=== PATIENT | female | born 1980 | race Caucasian/White ===

== ENCOUNTER 2020-10-18 08:48 | Emergency (ER) | payer OTHER, SELFPAY ==
[2020-10-18 09:05] VITALS: BP 114/79; PULSE 82; RESP 18; TEMP 36.6; O2SAT 99
--- NOTE | 2020-10-18 09:05 | ED.WOUNDLAC ---
HPI - Wound/Laceration General Chief Complaint: Extremity Injury, Upper Stated Complaint: Laceration/Wound Time Seen by Provider: 10/18/20 09:05 Source: patient and RN notes reviewed History of Present Illness HPI narrative: Patient is a 39-year-old female who presents the urgent care with complaints of a laceration to the right pinky finger. 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 Patient is up-to-date on her tetanus. States that the injury happened approximately 30 minutes ago. Patient has not done anything to the wound prior to arrival. No other acute complaints. No acute distress noted. Patient aware of the plan of care. Some parts of this dictation were generated by voice recognition software and may contain typographical and/or grammatical inaccuracies. Related Data Home Medications Medication Instructions Recorded Confirmed No Home Medications 10/18/20 10/18/20 Allergies Allergy/AdvReac Type Severity Reaction Status Date / Time No Known Allergies Allergy Verified 10/18/20 09:06 Review of Systems Review of Systems: Narrative: CONSTITUTIONAL: Denies fever, chills, or sweats. EYES: Denies visual changes, redness, or discharge. ENT: Denies rhinorrhea, congestion, sore throat, or otalgia. CARDIOVASCULAR: Denies chest pain, palpitations, or edema. RESPIRATORY: Denies cough or dyspnea. GASTROINTESTINAL: Denies abdominal pain, nausea, vomiting, or diarrhea. GENITOURINARY: Denies dysuria or hematuria. SKIN: Reports of a laceration to the right pinky finger MUSCULOSKELETAL: Denies back pain, joint pain, or myalgia. NEUROLOGIC: Denies headache, numbness, or weakness. All other systems reviewed are negative, except as documented in HPI. PMFSH Social History Social History Smoking status: Never smoker Alcohol intake: current Comments At the time of my signature, I reviewed and agree with the nursing past medical, surgical, social, and family history. There is no relevant family history pertinent to the patient complaint. Exam Narrative: Exam Narrative: GENERAL: This is a well-nourished, well-developed patient, in no apparent distress. HEAD: normocephalic, atraumatic. EYES: PERRL. Sclera clear/white. Vision is grossly intact. EARS: External ears normal NOSE: External nose normal with no obvious nasal discharge, nares without redness, no rhinorrhea. THROAT: Mucous membranes moist NECK: Neck supple SKIN: 3.5 cm linear laceration noted to the crevice of the MCP/fifth metacarpal of the right pinky finger. Warm, intact with no suspicious lesions or rash, good texture and turgor. NEURO: awake, alert, and oriented to person, place and time. There were no obvious focal neurologic abnormalities. EXTREMITIES: No clubbing, cyanosis, or edema. Range of motion to right upper extremity within normal limits. Positive strong right radial pulse with capillary refill less than 2 seconds. Course Vital Signs Vital signs: Vital Signs Temperature 97.9 F 10/18/20 09:05 Pulse Rate 82 10/18/20 09:05 Respiratory Rate 18 10/18/20 09:05 Blood Pressure 114/79 10/18/20 09:05 Pulse Oximetry 99 10/18/20 09:05 Temperature 97.9 F 10/18/20 09:17 Pulse Rate 82 10/18/20 09:17 Respiratory Rate 18 10/18/20 09:17 Blood Pressure 114/79 10/18/20 09:17 Pulse Oximetry 99 10/18/20 09:17 Reviewed Procedures Laceration Laceration 1: Site: hand (Pinky finger) Side (If applicable): right Size (cm): 3.5 Description: linear Local Anesthetic: lidocaine 1% Pre-repair: irrigated (Technique care normal saline) ====== Skin Level ====== Skin layer closed with: other (Ethilon) Size (cm): 5-0 Number of sutures: 4 ====== Subcutaneous Layer ====== ====== Muscle Layer ====== ====== Tendon Layer ====== Dressin cm linear laceration to the MCP crevice of the right fifth digit. Irrigated
[2020-10-18 09:17] VITALS: BP 114/79; PULSE 82; RESP 18; TEMP 36.6; O2SAT 99
== END 2020-10-18 09:57 | disposition home or self-care (01) ==
PROVIDERS: Emergency Provider Nurse Practitioner Family; PCP Internal Medicine
DX: S61.216A Laceration without foreign body of right little finger without damage to nail, initial encounter (principal); W45.8XXA Other foreign body or object entering through skin, initial encounter; Y99.0 Civilian activity done for income or pay
CPT/HCPCS: 12002; 99202; G0463

== ENCOUNTER 2024-10-10 16:34 | Emergency (ER) | payer OTHER, SELFPAY ==
--- NOTE | ~2024-10-10 | XR_ITS ---
HISTORY: dropped a steel bar on finger COMPARISON: None TECHNIQUE: 2 views of the right third digit were performed. FINDINGS: Comminuted fracture of the tuft of the right third digit. Suspect nailbed injury. Joint spaces are preserved and alignment is maintained. Soft tissues are without radiopaque foreign body or significant calcification. Age-appropriate mineralization. IMPRESSION: Comminuted fracture of the tuft of the right third digit, as detailed above. Reviewed, dictated and finalized at location A. IMPRESSION: Comminuted fracture of the tuft of the right third digit, as jordin led above.
--- OUTSIDE RECORDS SUMMARY | 2024-10-10 16:36 | XMS_ITS | Clinical Summary ---
Author Organization [facility] Address [address], [address] [address] Phone Care Team Providers Care Deputy Sheriff Lieutenant Name Role Phone Romeo Galicia MD Primary Care Provider [phone] Allergies No known active allergies Medications traMADol (ULTRAM) 50 MG Tablet Take 1 Tab by mouth every 6 hours as needed for Pain. 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 Respiratory Rate 16 06/10/2016 9:17 AM WOOD ST[employer]ER Oxygen Saturation 98% 06/10/2016 4:47 PM WO[employer] ST[employer]ER Inhaled Oxygen Concentration - - Weight 108.9 kg (240 lb) 06/10/2016 9:17 AM WOOD STAINER Height 172.7 cm (5' 8 ) 06/10/2016 9:17 AM WOOD ST[employer]ER Body Mass Index 36.49 06/10/2016 9:17 AM WOOD STAINER Plan of Treatment Health Maintenance Due Date Last Done Comments Hepatitis C Virus (HCV) Screening 1981 TdaP Immunization 1981 Hepatitis B Immunization (1 of 3 - 19+ 3-dose series) 2000 Pap Smear 2002 Cervical Cancer Screening (CCS) 12/01/2011 HPV/Cotest 12/01/2011 Discussion re Starting/Frequ ency of Mammograms 2021 Influenza Immunization (#1) 2024 SARS-COV-2 Immunization ( - season) 2024 Respiratory Syncytial Virus (RSV) Immunization (Adult) (1 - 1-dose 75+ series) 2056 Meningococcal Immunization (ACWY) Aged Out No longer eligible based on patient's age to complete this topic Pneumococcal Immunization Combined Aged Out No longer eligible based on patient's age to complete this topic Rotavirus Immunization Aged Out No lo nger eligible based on patient's age to complete this topic Insurance [employer] Care Teams Deputy Sheriff Lieutenant Relationship Specialty Start Date End Date Romeo Galicia MD [address] [facility] [address] [place] [address] [place] [address] PCP - General Internal Medicine 06/10/16
--- OUTSIDE RECORDS SUMMARY | 2024-10-10 16:36 | XMS_ITS | Data Portability ---
Author Organization [facility] Radha Pina Address [address] [place] [address] Care Team Providers Care Credit Representative Name Role Phone MELANIE PRITCHETT Primary Care Provider Unavailabl e Assessment No assessment recorded. Plan of Treatment Reminders Order Date Submit Date Provider Last Modified By Organization Details Last Modified Time Details Appointments ANY 15 2024 02:45P M MELANIE PRITCHETT, CHILD CARE ASSOCIATE TEACHER-BC Not available Not available Not available Lab urinalysi s, dipstick 2014 015 [email or web address] In-Office Order, Internal Use Only DO Not Attach Compendium DO Not Attach Compendium, Do Not Delete/merge, [id number] 02/21/2015 17:42:18 bacterial vaginosis + vaginitis panel, vaginal 2014 015 [facility], [address] [place] [address], [address], [place], [address], 03/02/2015 17:38:06 bacterial vaginosis + vaginitis panel, vaginal 2014 015 [facility], [address] [facility], [address], [place], [address], 09/16/2014 06:36:58 HBsAg (hepatiti s B surface Ag), EIA, serum 2014 015 [facility], [address] [facility] [address] [facility], [address], [place], [address], 09/16/2014 08:59:50 hepatitis C Ab, signal-to -cutoff, serum or plasma 2014 015 [facility], [address] [place] [address], [address], [place], [address], 09/16/2014 08:59:50 HIV (1+O+2) Ab, serum 2014 015 [facility], [address] [place] [address], [address], [place], [address], 09/16/2014 08:59:48 RPR (rapid plasma reagin), serum 2014 015 [facility], [address] [place] [address], [address], [place], [address], 09/16/2014 08:59:49 hsv (1+2) igg, serum 2014 015 [facility], [address] [place] [address], [address], [place], [address], 09/16/2014 08:59:48 Referral None recorded. Procedures None recorded. Surgeries None recorded. Imaging None recorded. Medication Orders Flagyl 500 mg tablet 2014 015 [id number], [address] [place], [id number], 09/28/2024 10:02:27 Zoloft 50 mg tablet 2014 015 [email or web address] [id number], [address] [place], [place], [id number], 09/28/2024 10:26:22 Patient TargetsNo targets recorded. Patient Instructions Encounter Date Encounter Id Patient Instructions Last Modified By Organization Details Last Modified Time 02/21/2015 [id number] learning about mood disorders [email or web address] Not available 02/21/2015 18:02:25 Reason for Referral Orthopedic Surgeon Referral for Numbness of hand Referring Physician: Melanie Pritchett [facility], Encounter Date: 09/28/2024 Psychiatrist Referral for Ad ult attention deficit hyperactivity disorder Referring Physician: Melanie Pritchett [facility], Encounter Date: 09/28/2024 Results Created Date Observation Date Name Description Value Unit Range Abnormal Flag Note LastModifiedBy Organization Detail LastModifiedTime 02/22/20 15 02/21/2015 urina lysis , dipst ick Leukocytes Negati ve Not Available In-Office Order Internal Use Only DO Not Attach Compendium DO Not Attach Compendium, Do Not Delete/merge, [id number] 02/21/2015 11:41:33 02/22/20 15 02/21/2015 urina lysis , dipst ick Nitrite negati ve Not Available In-Office Order Internal Use Only DO Not Attach Compendium DO Not Attach Compendium, Do Not Delete/merge, [id number] 02/21/2015 11:41:33 02/22/20 15 02/21/2015 urina lysis , dipst ick Urobilinogen .2 Not Available In-Of fice Order Internal Use Only DO Not Attach Compendium DO Not Attach Compendium, Do Not Delete/merge, [id number] 02/21/2015 11:41:33 02/22/2002/21/2015 urina lysis , dipst ick Protein Negati ve Not Available In-Office Order Internal Use Only DO Not Attach Compendium DO Not Attach Compendium, Do Not Delete/merge, [id number] 02/21/2015 11:41:33 02/22/20 15 02/21/2015 urina lysis , dipst ick pH 5.0 Not Available In-Office Order Internal Use Only DO Not Attach Compendium DO Not Attach Compendium, Do Not Delete/merge, [id number] 02/21/2015 11:41:33 02/22/2002/21/2015 urina lysis , dipst ick Blood Non-He molyze d: Trace Not Available In-Office Order Internal Use Only DO Not Attach Compendium DO Not Attach Compendium, Do Not Delete/merge, [id number] 02/21/2015 11:41:33 02/22/20 15 02/21/2015 urina lysis , dipst ick Specific [place] 1.020 Not Available In-Off ice Order Internal Use Only DO Not Attach Compendium DO Not Attach Compendium, Do Not Delete/merge, [id number] 02/21/2015 11:41:33 02/22/20 15 02/21/2015 urina lysis , dipst ick Ketone Negati ve Not Available In-Office Order Internal Use Only DO Not Attach Compendium DO Not Attach Compendium, Do Not Delete/merge, 02/21/2015 11:41:33 02/22/20 15 02/21/2015 urina lysis , dipst ick Bilirubin Negati ve Not Available In-Office Order Internal Use Only DO Not Attach Compendium DO Not Attach Compendium, Do Not Delete/merge, 02/21/2015 11:41:33 02/22/20 15 02/21/2015 urina lysis , dipst ick Glucose Negati ve Not Available In-Office Order Internal Use Only DO Not Attach Compendium DO Not Attach Compendium, Do Not Delete/merge, 02/21/2015 11:41:33 02/22/20 15 02/21/2015 urina lysis , dipst ick Appearance Clear Not Available In-Offi ce Order Internal Use Only DO Not Attach Compendium DO Not Attach Compendium, Do Not Delete/merge, 02/21/2015 11:41:33 02/22/20 15 02/21/2015 urina lysis , dipst ick Color Pale Yellow Not Available In-Office Order Internal Use Only DO Not Attach Compendium DO Not Attach Compendium, Do Not Delete/merge, 02/21/2015 11:41:33 09/14/19 15 09/15/2014 bacte rial vagin osis + vagin itis panel , vagin al atopobium vaginae HIGH - 2 score abnormal Not Available [facility] ([facility]) [address], [place], [address], 09/16/2014 06:36:58 09/14/19 15 09/15/2014 bacte rial vagin osis + vagin itis panel , vagin al bvab 2 LOW - 0 score Not Available [facility] ([facility]) [address] [facility], [place], [address], 09/16/2014 06:36:58 09/14/19 15 09/15/2014 bacte rial vagin osis + vagin itis panel , vagin al megasphaera 1 LOW - 0 score CALCU LATE TOTAL SCORE BY DEBRA Zayas THE 3 INDIV IDUAL BACTE RIAL VAGIN OSIS (BV) MARKE R SCORE S TOGET HER. TOTAL SCORE IS INTER PRETE D FOLLO WS: . TOTAL SCORE 0-1: INDIC ATES THE ABSEN CE OF BV. TOTAL SCORE 2: INDET ERMIN ATE FOR BV. ADDIT IONAL CLINI ABDIRAHMAN DATA SHOUL D BE EVALU ATED TO ESTAB JANAK A DIAGN OSIS. TOTAL SCORE 3-6: INDIC ATES THE PRESE NCE OF BV. . THIS TEST WAS DEVEL OPED AND ITS PERFO RMANC E STEVEN CTERI STICS DETER MINED BY [facility]. IT HAS NOT BEEN CLEAR ED OR APPRO LEANN BY THE FOOD AND DRUG ADMIN ISTRA TION. THE FDA HAS DETER MINED THAT SUCH CLEAR ANCE OR APPRO SADAF IS NOT NECES [place]. Not Available [facility] ([facility]) [address] [facility], [place], [address], 09/16/2014 06:36:58 09/14/19 15 09/15/2014 bacte rial vagin osis + vagin itis panel , vagin al trich vag by ULYSSES NEGATI VE negati ve Not Available [facility] ([facility]) [address] [place], [address], 09/16/2014 06:36:58 09/14/19 15 09/15/2014 bacte rial vagin osis + vagin itis panel , vagin al chlamydia trachomatis, ULYSSES NEGATI VE negati ve Not Available [facility] ([facility]) [address] [place], [address], 09/16/2014 06:36:58 09/14/19 15 09/15/2014 bacte rial vagin osis + vagin itis panel , vagin al neisseria gonorrhoeae, ULYSSES NEGATI VE negati ve Not Available [facility] ([facility]) [address] [place], [address], 09/16/2014 06:36:58 09/14/19 15 09/16/2014 bacte rial vagin osis + vagin itis panel , vagin al bailey albicans, ULYSSES NEGATI VE negati ve Not Available [facility] ([facility]) [address] [facility], [place], [address], 09/16/2014 06:36:58 09/14/19 15 09/16/2014 bacte rial vagin osis + vagin itis panel , vagin al bailey glabrata, ULYSSES NEGATI VE negati ve THIS TEST WAS DEVEL OPED AND ITS PERFO RMANC E STEVEN CTERI STICS DETER MINED BY [facility]. IT HAS NOT BEEN CLEAR ED OR APPRO LEANN BY THE FOOD AND DRUG ADMIN ISTRA TION. THE FDA HAS DETER MINED THAT SUCH CLEAR ANCE OR APPRO SADAF IS NOT NECES [place]. Not Available [facility] ([facility]) [address] [facility], [place], [address], 09/16/2014 06:36:58 09/15/1909/16/2014 HIV (1+O+ 2) Ab, serum HIV 1/O/2 abs-index value <1.00 <1.00 INDEX VALUE : SPECI MEN REACT IVITY RELAT OLEG TO THE NEGAT OLEG CUTOF F. Not Available [facility] ([facility]) [address] [facility], [place], [address], 09/16/2014 08:59:48 09/15/1909/16/2014 HIV (1+O+ 2) Ab, serum HIV 1/O/2 abs, qual NON REACTI VE non reacti ve Not Available [facility] ([facility]) [address] [facility], [place], [address], 09/16/2014 08:59:48 09/15/19 15 09/15/2014 hsv (1+2) igg, serum hsv 1 IgG, type spec 37.80 index 0.00-0 .90 high NEGAT OLEG <0.91 EQUIV OCAL 0.91 - 1.09 POSIT OLEG >1.09 NOTE: NEGAT OLEG INDIC ATES NO ANTIB ODIES DETEC CHICO TO HSV-1 . EQUIV OCAL MAY SUGGE ST EARLY INFEC TION. IF CLINI BONNIE APPRO PRIAT E, RETES T AT LATER DATE. POSIT OLEG INDIC ATES ANTIB ODIES DETEC CHICO TO HSV-1 . Not Available [facility] ([facility]) [address] [facility], [place], [address], 09/16/2014 08:59:48 09/15/19 15 09/15/2014 hsv (1+2) igg, serum hsv 2 IgG, type spec <0.91 index 0.00-0 .90 NEGAT OLEG <0.91 EQUIV OCAL 0.91 - 1.09 POSIT OLEG >1.09 NOTE: NEGAT OLEG INDIC ATES NO ANTIB ODIES DETEC CHICO TO HSV-2 . EQUIV OCAL MAY SUGGE ST EARLY INFEC TION. IF CLINI BONNIE APPRO PRIAT E, RETES T AT LATER DATE. POSIT OLEG INDIC ATES ANTIB ODIES DETEC CHICO TO HSV-2 . Not Available [facility] ([facility]) [address] [facility], [place], [address], 09/16/2014 08:59:48 09/15/19 15 09/16/2014 RPR (rapi d plasm a reagi n), serum RPR NON REACTI VE non reacti ve Not Available [facility] ([facility]) [address] [place], [address], 09/16/2014 08:59:49 09/15/19 15 09/14/2014 hepat itis C Ab, signa l-to- cutof f, serum or plasm a comment: COMMEN T NON REACT OLEG HCV ANTIB YANET SCREE N IS CONSI STENT WITH NO HCV INFEC TION, UNLES S RECEN T INFEC TION IS SUSPE CTED OR OTHER EVIDE NCE EXIST S TO INDIC ATE HCV INFEC TION. Not Available [facility] ([facility]) [address] [facility], [place], [address], 09/16/2014 08:59:50 09/15/19 15 09/16/2014 hepat itis C Ab, signa l-to- cutof f, serum or plasm a HCV Ab <0.1 S/co_ ratio 0.0-0. 9 Not Available [facility] ([facility]) [address] [facility], [place], [address], 09/16/2014 08:59:50 09/15/19 15 09/16/2014 HBsAg (hepa titis B surfa ce Ag), EIA, serum HBsAg screen NEGATI VE negati ve Not Available [facility] ([facility]) [address] [facility], [place], [address], 09/16/2014 08:59:50 02/22/20 15 02/21/2015 bacte rial vagin osis + vagin itis panel , vagin al vaginitis positi ve tx'd at appt. Not Available [facility] ([facility]) [address] [facility], [place], [address], 03/02/2015 16:42:14 09/29/19 25 09/28/2024 drug scree n, urine Methamphetam ine Negati ve Not Available In-Office Order Internal Use Only DO Not Attach Compendium DO Not Attach Compendium, Do Not Delete/merge, [id number] 09/28/2024 10:31:36 09/29/19 25 09/28/2024 drug scree n, urine THC Positi ve Not Available In-Office Order Internal Use Only DO Not Attach Compendium DO Not Attach Compendium, Do Not Delete/merge, [id number] 09/28/2024 10:31:36 09/29/19 25 09/28/2024 drug scree n, urine Cocaine (Abraham) Negati ve Not Available In-Office Order Internal Use Only DO Not Attach Compendium DO Not Attach Compendium, Do Not Delete/merge, [id number] 09/28/2024 10:31:36 09/29/1909/28/2024 drug scree n, urine Benzodiazepi ne (Bzo) Negati ve Not Available In-Office Order Internal Use Only DO Not Attach Compendium DO Not Attach Compendium, Do Not Delete/merge, 09/28/2024 10:31:36 09/29/1909/28/2024 drug scree n, urine Methadone (Mtd) Negati ve Not Available In-Office Order Internal Use Only DO Not Attach Compendium DO Not Attach Compendium, Do Not Delete/merge, 09/28/2024 10:31:36 09/29/1909/28/2024 drug scree n, urine Buprenorphin e (Bup) Negati ve Not Available In-Office Order Internal Use Only DO Not Attach Compendium DO Not Attach Compendium, Do Not Delete/merge, 09/28/2024 10:31:36 09/29/1909/28/2024 drug scree n, urine Oxycodone (Oxy) Negati ve Not Available In-Office Order Internal Use Only DO Not Attach Compendium DO Not Attach Compendium, Do Not Delete/merge, 09/28/2024 10:31:36 09/29/1909/28/2024 drug scree n, urine Barbiturates (Bar) Negati ve Not Available In-Office Order Internal Use Only DO Not Attach Compendium DO Not Attach Compendium, Do Not Delete/merge, 09/28/2024 10:31:36 09/29/1909/28/2024 drug scree n, urine MDMA (Ecstacy) Negati ve Not Available In-Office Order Internal Use Only DO Not Attach Compendium DO Not Attach Compendium, Do Not Delete/merge, 09/28/2024 10:31:36 09/29/1909/28/2024 drug scree n, urine Amphetamines (Amp) Negati ve Not Available In-Office Order Internal Use Only DO Not Attach Compendium DO Not Attach Compendium, Do Not Delete/merge, 09/28/2024 10:31:36 09/29/1909/28/2024 drug scree n, urine Opiates (opi) Negati ve Not Available In-Office Order Internal Use Only DO Not Attach Compendium DO Not Attach Compendium, Do Not Delete/merge, [id number] 09/28/2024 10:31:36 09/29/1909/28/2024 drug scree n, urine Phencyclidin e (Pcp) Negati ve Not Available In-Office Order Internal Use Only DO Not Attach Compendium DO Not Attach Compendium, Do Not Delete/merge, [id number] 09/28/2024 10:31:36 09/29/1909/28/2024 drug scree n, urine Tricyclic Antidepressa nts Negati ve Not Available In-Office Order Internal Use Only DO Not Attach Compendium DO Not Attach Compendium, Do Not Delete/merge, [id number] 09/28/2024 10:31:36 09/29/1909/28/2024 drug scree n, urine Fentanyl Negati ve Not Available In-Office Order Internal Use Only DO Not Attach Compendium DO Not Attach Compendium, Do Not Delete/merge, [id number] 09/28/2024 10:31:36 Result Notes None recorded. Problems Name Problem SNOMED Code Status Onset Date Resolution Date Notes Provider Name and Address Organization Details Recorded Time Sexually transmitted infectious disease 8640885 Active DORITA Mooney, [facility] 5 09:50:18 Vaginal discharge 885825648 Active Bonifacio connors, [facility] 5 17:42:17 Depressive disorder 18474421 Active Bonifacio connors, [facility] 5 17:42:17 Problem Notes None recorded. Procedures Surgical History Date Name Laterality Status Provider Name and Address Organization Details Recorded Time 3 Date of Last Pap Smear completed Silvina Rodriguez MA [facility] 09/13/2014 09:44:03 procedure on shoulder completed Kerrie Sofia MA [facility] 09/28/2024 10:13:43 Tubal Ligation completed Silvina Rodriguez MA [facility] 09/13/2014 09:44:02 Imaging Results None recorded. Procedure Notes None recorded. Medical Equipment None Reported. Allergies No known drug allergies Medications Name Sig Start Date Stop Date Status Note LastModified by Organization Details LastModified Time trazodone 50 mg tablet TAKE 1 TABLET BY MOUTH NIGHTLY NEEDED FOR SLEEP active PRN Not Available Not Available No t Available dextroamph etamine-am phetamine 10 mg tablet TAKE 1 TABLET BY MOUTH EVERY DAY active Not Available Not Available No t Available Zoloft 50 mg tablet Take 1 tablet every day by oral route. 09/28 completed not taking Not Available Not Available Not Available dextroamph etamine-am phetamine ER 20 mg 24hr capsule,ex tend release TAKE 1 CAPSULE BY MOUTH EVERY DAY active Not Available Not Available No t Available Flagyl 500 mg tablet Take 1 tablet every 12 hours by oral route for 7 days. 09/28 completed Not Available Not Available Not Available methylphen idate ER 36 mg tablet,ext ended release 24 hr TAKE 1 TABLET BY MOUTH EVERY DAY IN THE MORNING 09/28 completed not taking Not Available Not Available Not Available atomoxetin e 25 mg capsule TAKE 1 CAPSULE BY MOUTH EVERY DAY active not taking Not Available Not Available Not Available bupropion HCl 150 mg tablet,12 hr sustained- release(sm oking deterrent) TAKE 1 TABLET BY MOUTH TWICE A DAY 09/28 completed not taking Not Available Not Available Not Available Vitals Date Recorded Body height Body mass index (BMI) Body weight Systolic blood pressure Diastolic blood pressure Provider Name and Address Organization Details Last Updated DateTime 02/21/2015 172.72 cm 33.8 kg/m2 081843.9 18824 g 120 mm[Hg] 80 mm[Hg] Silvina Rodriguez MA [place] [facility] 5 11:41:33 Date Recorded Body height Body mass index (BMI) Body weight Oxygen saturation Oxygen saturation in Arterial blood by Pulse oximetry Heart rate Respiratory rate Body temperature Systolic blood pressure Diastolic blood pressure Provider Name and Address Organization Details Last Updated DateTime 5 172.72 cm 30.6 kg/m2 64840.7 8 g 97 % 97 % 74 /min 16 /min 97.5 [degF] 120 mm[Hg] 85 mm[Hg] Kerrie Sofia [place] [facility] 5 10:16:59 Date Recorded Body weight Body height Body mass index (BMI) Systolic blood pressure Diastolic blood pressure Provider Name and Address Organization Details Last Updated DateTime 09/13/2014 65762.97 5374 g 172.72 cm 33 kg/m2 114 mm[Hg] 80 mm[Hg] Silvina Rodriguez MA [facility] 5 09:44:03 Social History Question Answer Notes LastModified by Organizat ion Details LastModified Time Tobacco Smoking Status Current Every Day Smoker Silvina Rodriguez MA null, [facility] 09/13/2014 09:44:03 What Is Your Level Of Alcohol Consumption? Occasional Information not available 09/13/2014 Are You Blind Or Do You Have Difficulty Seeing? Yes Glasses Information not available 09/28/2024 Is Blood Transfusion Acceptable In An Emergency? Yes Information not available 09/13/2014 What Is Your Level Of Caffeine Consumption? Heavy Information not available 09/28/2024 In The 14 Days Before Symptom Onset, Have You Had Close Contact With A Laboratory-confi rmed COVID-19 While That Case Was Ill? No Information not available 09/28/2024 Have You Been To An Area Known To Be High Risk For COVID-19? No Information not available 09/28/2024 Are You Currently Employed? Yes Information not available 09/28/2024 Are You Deaf Or Do You Have Serious Difficulty Hearing? No Information not available 09/28/2024 What Type Of Diet Are You Following? REGULAR Portion Control Information not available 09/28/2024 What Is Your Occupation? [employer] Information not available 09/28/2024 Are There Any Guns Present In Your Home? No Information not available 09/28/2024 Live Alone Or With Others? With Others Information not available 09/13/2014 What Was The Date Of Your Most Recent Tobacco Screening? 09/28/2024 Information not available 09/28/2024 How Many Children Do You Have? 2 Information not available 09/13/2014 What Is Your Relationship Status? Single Information not available 09/13/2014 Do You Use Your Seat Belt Or Car Seat Routinely? Yes Information not available 09/28/2024 Do You Have Smoke And Carbon Monoxide Detectors In Your Home? Yes Information not available 09/28/2024 At What Age Did You Start Smoking Tobacco? 13 Information not available 09/28/2024 Are You Passively Exposed To Smoke? Yes Information not available 09/28/2024 How Much Tobacco Do You Smoke? 1 PPD Information not available 09/28/2024 Do You Feel Stressed (tense, Restless, Nervous, Or Anxious, Or Unable To Sleep At Night)? [id number] Information not available 09/28/2024 Do You Use Any Illicit Or Recreational Drugs? No Information not available 09/28/2024 Do You Use Sunscreen Routinely? Yes Information not available 09/28/2024 Has Tobacco Cessation Counseling Been Provided? Yes Information not available 09/28/2024 On What Date Was Tobacco Cessation Counseling Provided? 09/28/2024 Information not available 09/28/2024 How Many Years Have You Smoked Tobacco? 20 Information not available 09/13/2014 Do You Or Have You Ever Used Any Other Forms Of Tobacco Or Nicotine? No Information not available 09/28/2024 Sex: Female Functional Status Question Answer Note LastModified by Organizat ion Details LastModified Time Are you able to care for yourself? Yes Information not available 09/28/2024 What is your exercise level? Moderate walking Information not available 09/28/2024 Mental Status None recorded. Family History Relationship Description Onset Age of this Age Resolved Age Notes LastModified by Organization Details LastModified Time Paternal Grandmother Malignant neoplasm of urinary bladder Not available 2014 11:41:33 Brother Diverticulit is Not available 2024 10:06:54 Father Narcolepsy Not availa ble 09/28/2024 10:07:03 Paternal Grandfather Malignant tumor of lung Not available 2024 10:07:18 Medical History Condition Response Coronary Artery Disease N Other N Atrial Fibrillation N High Blood Pressure N Depression N COPD N Blood Clots N Anxiety Disorder Y Muscle, Joint, or Bone Problems N Arthritis N Acid Reflux (GERD) N Cancer N Stroke N ADHD Y High Cholesterol N Liver Disease N Schizophrenia N Headaches N Thyroid Problems N Kidney or Bladder Problems N GI Problems N Have you had a mammogram in the last yea r? N Eating Disorder N Skin Problems N Anemia N Heart Attack ([place]) N Diabetes N Seizures/Epilepsy N Have you had a colonoscopy in the last 1 0 years? N Asthma N Allergies N Have you had a PSA blood test in the las t year? N Substance Abuse N Hepatitis N Heart Failure N Osteoporosis N Gynecological History Statement/Question Response Abnormal Pap Y Date of LMP STIs/STDs Y HPV Vaccine Y Age at Menarche 12 Current Control Method Hysterectom y Age at First Child 30 Sexually Active? Y Date of Last Pap Smear 07/10/2012 Sexual Problems? N LMP Approximate Desired Control Method None Obstetrics History GPAL:G 1 P 0 0 0 2 Type Value Living 2 Total 1 Immunizations Vaccine Type Date Status Note Provider Alfa cornejo and Address Organization Details Recorded Time Tdap 01/17/2022 completed Kerrie Sofia MA [place], [place] - [facility] 09/28/2024 10:25:29 Past Encounters Encounter ID Performer Location Encounter Start Date Encounter Closed Date Diagnosis/Indication Diagnosis SNOMED-CT Code Diagnosis ICD10 Code Diagnosis Note [id number] Brando Morales ([facility]) [place] [address] 09/13/2014 09:28:56 09/14/2014 09:16:33 Sexually transmitted infectious disease 3509535 Gynecologi c examination 68380137 pap deferred, last done in 2012 and negative. Venereal d isease screening 115453366 [id number] Brando Morales ([facility]) [place] [address] 02/21/2015 11:22:35 02/21/2015 14:01:25 Vaginal discharge 905302204 Depressive disorder 82628129 Health Concerns Section Related Observation LastModified by Organization Detai ls LastModified Time None Recorded Concern Status LastModified by Organization Details LastModified Time None Recorded Advance Directives Directive None Recorded Payers Encounter Date Sequence Insurance Name Policy Number Policy Barrett Covered Member ID Barrett Member ID Guarantor Name 09/13/2014 1 [facility] [id number] 1 Estefania Gramajo [id number] Estefania Gramajo 02/21/[address] [facility] [id number] Estefania Gramajo [id number] Estefania Gramajo Notes Date Note Type Note Provider Name and Address Organization Details Recorded Time 02/21/2015 text/html patient complain s of moodiness the week before and during menses. Complains of crying and quick to anger. Patient previously took ssri and was control pills for these mood swings. Patient complained that symptoms returned after discontinuing control pills. Has not been on ssri alone in the past 15 years. Vaginal discharge is white with odor and with irritation. No concern about stds and last check was notable for possible bv but patient had no symptoms then. Patient complains of spots on labia that appeared about 2-3 week, not bothersome. Bonifacio Carmona [facility], [place] - [facility], [facility] 02/21/2015 19:50:56 OBGyn Episode No OBEpisode recorded.
--- OUTSIDE RECORDS SUMMARY | 2024-10-10 16:37 | XMS_ITS | Referral Summary ---
Author Organization [facility] A Address [address] [place] [address] Care Team Providers Care On Site Coordinator Name Role Phone Roverto Leary MD Primary Care Provider [phone] Encounters Date Type Department Care Team Description 09/06/2024 Orders Only [facility] Primary Care at [address] [address] Roverto Leary MD 08/16/2024 4:00 PM RESEARCH MANAGER Office Visit [address] [place] [address] Margaux Oseguera NP Perimenopausal vasomotor symptoms (Primary Dx); Encounter for screening mammogram for breast cancer 08/05/2024 9:00 AM RESEARCH MANAGER Office Visit [facility] Primary Care at [address] [address] Roverto Leary MD Attention deficit hyperactivity disorder (ADHD), predominantly inattentive type (Primary Dx); Class 1 obesity due to excess calories without serious comorbidity with body mass index (BMI) of 32.0 to 32.9 in adult 07/30/2024 Telephone [facility] Primary Care at [address] [address] Roverto Leary MD Test Results 07/30/2024 7:15 AM RESEARCH MANAGER Lab [facility] [address] [place] [address] Need for hepatitis B screening test; Primary insomnia; Attention deficit hyperactivity disorder (ADHD), predominantly inattentive type; Class 1 obesity due to excess calories without serious comorbidity with body mass index (BMI) of 32.0 to 32.9 in adult; Lipid screening 07/30/2024 7:10 AM RESEARCH MANAGER Lab [facility] [address] [place] [address] Perimenopausal symptom 07/27/2024 Telephone [facility] [address] [facility] [address] [place] [address] Margaux Oseguera NP Labs/Appointment 07/27/2024 Telephone [facility] 4 [facility] [address] [place] [phone] Margaux Oseguera NP menopause symptoms 07/20/2024 Telephone [facility] [address] [address] Roverto Leary MD 07/15/2024 Telephone [facility] [place] 2 [facility] [address] [place] [address] Roverto Leary MD from Last 3 Months Allergies Active Allergy Reactions Criticality Noted Date Comments Tramadol Nausea only Low 02/28/2017 Medications mupirocin (BACTROBAN) 2 % ointment Apply topically 3 (three) times a day 22 g 3 Active Additional Information Patient not taking.Reported on 08/16/2024 cyclobenzaprine (FLEXERIL) 5 mg tablet Take 1 tablet (5 mg total) by mouth 3 (three) times a day as needed for muscle spasms 30 tablet 4 Active traZODone (DESYREL) 50 mg tablet TAKE 1 TABLET BY MOUTH NIGHTLY NEEDED FOR SLEEP 90 tablet 1 4 Active atomoxetine (STRATTERA) 25 mg capsuleIndication s:Attention-Defic it Hyperactivity Disorder Take 1 capsule (25 mg total) by mouth daily 30 capsule 11 5 026 Active estradioL (VIVELLE-DOT) 0.025 mg/24 hrIndications:Vas omotor Symptoms associated with Menopause Place 1 patch on the skin 2 (two) times a week 8 patch 2 5 Active dextroamphetamine -amphetamine XR (ADDERALL XR) 20 mg 24 hr capsule Take 1 capsule (20 mg total) by mouth every morning 30 capsule 5 Active dextroamphetamine -amphetamine (ADDERALL) 10 mg tabletIndications :Attention-Defici t Hyperactivity Disorder Take 1 tablet (10 mg total) by mouth daily 30 tablet 5 Active Active Problems Problem Noted Date Diagnosed Date Perimenopausal vasomotor symptoms 08/18/2024 Assessment & Plan (08/18/2024 10:27 PM RESEARCH MANAGER): Discussed hormonal and non-hormonal treatment options for vasomotor symptoms. Risks and benefits of hormone replacement (HRT) for vasomotor symptoms related to menopause discussed in detail during visit. Patient aware risks associated with HRT include increased risk of blood clots, heart attack, stroke, and increased risk of breast cancer. Patient verbalizes understanding of risk and benefits and wishes to proceed with HRT. - Start on 0.025 mg transdermal estradiol patch. Prescription sent to pharmacy. Patient aware may take up to 8 weeks for full therapeutic effect. - Overdue for well woman exam. Encouraged to schedule appointment. Annual physical exam 04/19/2024 Assessment & Plan (04/19/2024 3:03 PM CDT): Discussed lifestyle modifications, diet and exercise. Routine blood work ordered/reviewed today. Yearly vision and dental examinations. Depressive disorder 12/18/2021 Assessment & Plan (12/17/2022 4:12 PM CDT): Pt did not start wellbutrin yet Will start now states otherwise not at goal Sexually transmitted disease 12/18/2021 Vaginal discharge 12/18/2021 Class 1 obesity due to exces s calories without serious comorbidity with body mass index (BMI) of 32.0 to 32.9 in adult 12/18/2021 Assessment & Plan (08/05/2024 9:12 AM RESEARCH MANAGER): Wt Readings from Last 3 Encounters: 08/05/24 92.1 kg (203 lb) 04/19/24 93.2 kg (205 lb 8 oz) 12/22/23 93.8 kg (206 lb 12.8 oz) BMI Readings from Last 3 Encounters: 08/05/24 31.79 kg/m 04/19/24 32.18 kg/m 12/22/23 32.38 kg/m Not at goal of bmi <30 Continue diet and exercise BMI Follow-up includes: nutrition counseling and exercise counseling. Assessment & Plan (04/19/2024 3:02 PM CDT): Wt Readings from Last 3 Encounters: 04/19/24 93.2 kg (205 lb 8 oz) 12/22/23 93.8 kg (206 lb 12.8 oz) 08/18/23 95.7 kg (210 lb 14.4 oz) BMI Readings from Last 3 Encounters: 04/19/24 32.18 kg/m 12/22/23 32.38 kg/m 08/18/23 33.02 kg/m Not at goal of bmi <30 Continue diet and exercise BMI Follow-up includes: nutrition counseling and exercise counseling. Assessment & Plan (12/22/2023 4:26 PM CDT): Wt Readings from Last 3 Encounters: 12/22/23 93.8 kg (206 lb 12.8 oz) 08/18/23 95.7 kg (210 lb 14.4 oz) 04/15/23 96.1 kg (211 lb 12.8 oz) BMI Readings from Last 3 Encounters: 12/22/23 32.38 kg/m 08/18/23 33.02 kg/m 04/15/23 33.17 kg/m Not at goal of bmi <30 Continue diet and exercise BMI Follow-up includes: nutrition counseling and exercise counseling. Assessment & Plan (08/18/2023 4:40 PM RESEARCH MANAGER): Wt Readings from Last 3 Encounters: 08/18/23 95.7 kg (210 lb 14.4 oz) 04/15/23 96.1 kg (211 lb 12.8 oz) 02/07/23 93 kg (205 lb) BMI Readings from Last 3 Encounters: 08/18/23 33.02 kg/m 04/15/23 33.17 kg/m 02/07/23 32.11 kg/m Not at goal of bmi <30 Continue diet and exercise BMI Follow-up includes: nutrition counseling and exercise counseling. Assessment & Plan (04/15/2023 4:45 PM CDT): Wt Readings from Last 3 Encounters: 04/15/23 96.1 kg (211 lb 12.8 oz) 02/07/23 93 kg (205 lb) 12/17/22 93 kg (205 lb) BMI Readings from Last 3 Encounters: 04/15/23 33.17 kg/m 02/07/23 32.11 kg/m 12/17/22 32.10 kg/m Not at goal of bmi <30 Continue diet and exercise BMI Follow-up includes: nutrition counseling and exercise counseling. Assessment & Plan (12/17/2022 4:06 PM CDT): Wt Readings from Last 3 Encounters: 12/17/22 93 kg (205 lb) 09/11/22 96.2 kg (212 lb) 07/15/22 96.6 kg (213 lb) BMI Readings from Last 3 Encounters: 12/17/22 32.10 kg/m 09/11/22 33.20 kg/m 07/15/22 32.40 kg/m Not at goal of bmi <30 Continue diet and exercise BMI Follow-up includes: nutrition counseling and exercise counseling. Assessment & Plan (09/11/2022 3:53 PM RESEARCH MANAGER): Wt Readings from Last 3 Encounters: 09/11/22 96.2 kg (212 lb) 07/15/22 96.6 kg (213 lb) 06/04/22 96.2 kg (212 lb) BMI Readings from Last 3 Encounters: 09/11/22 33.20 kg/m 07/15/22 32.40 kg/m 06/04/22 32.24 kg/m Not at goal of bmi <30 Continue diet and exercise BMI Follow-up includes: nutrition counseling and exercise counseling. Assessment & Plan (07/15/2022 8:00 AM RESEARCH MANAGER): Wt Readings from Last 3 Encounters: 07/15/22 96.6 kg (213 lb) 06/04/22 96.2 kg (212 lb) 02/28/22 98 kg (216 lb 1.6 oz) BMI Readings from Last 3 Encounters: 07/15/22 32.40 kg/m 06/04/22 32.24 kg/m 02/28/22 32.87 kg/m Not at goal of bmi <30 Continue diet and exercise BMI Follow-up includes: nutrition counseling and exercise counseling. Assessment & Plan (06/04/2022 4:27 PM RESEARCH MANAGER): Wt Readings from Last 3 Encounters: 06/04/22 96.2 kg (212 lb) 02/28/22 98 kg (216 lb 1.6 oz) 01/17/22 102.1 kg (225 lb) BMI Readings from Last 3 Encounters: 06/04/22 32.24 kg/m 02/28/22 32.87 kg/m 01/17/22 34.22 kg/m Not at goal of bmi <30 Continue diet and exercise BMI Follow-up includes: nutrition counseling and exercise counseling. Assessment & Plan (02/28/2022 4:35 PM CDT): BMI Follow-up includes: nutrition counseling and exercise counseling. Has made some improvement and states that she feels better Assessment & Plan (01/17/2022 4:01 PM CDT): BMI Follow-up includes: nutrition counseling and exercise counseling. Assessment & Plan (12/18/2021 4:24 PM CDT): BMI Follow-up includes: nutrition counseling and exercise counseling. Attention deficit hyperactiv ity disorder (ADHD), predominantly inattentive type 12/18/2021 Assessment & Plan (08/05/2024 9:09 AM RESEARCH MANAGER): restart adderral xr 10 mg every day, 20 mg every day Had side effects to concerta Not at goal at this time Pending psychiatry eval Pt wants to be on only instant release due to side effects/not tolerating the being awake No longer taking wellbutrin Assessment & Plan (04/19/2024 2:59 PM CDT): C/w adderral xr 10 mg every day, 20 mg every day Not at goal at this time Erferral to psychiatr placed today Recommend stopping adderral Pt wants to be on only instant release due to side effects/not tolerating the being awake Restart wellbutrin 150 mg bid Recommend stopping adderall Starting concerta Following up with psychiatry Assessment & Plan (12/22/2023 4:29 PM CDT): Worsening sx Increase 2nd dose to 20 mg Contineu 10 mg qam Assessment & Plan (08/18/2023 4:39 PM RESEARCH MANAGER): Pt did not start wellbutrin yet Will start now states otherwise not at goal Continue adderral 10 mg bid Assessment & Plan (04/15/2023 4:44 PM CDT): Pt did not start wellbutrin yet Will start now states otherwise not at goal Continue adderral 10 mg bid Assessment & Plan (12/17/2022 4:12 PM CDT): Pt did not start wellbutrin yet Will start now states otherwise not at goal Continue adderral 10 mg bid Assessment & Plan (09/11/2022 3:58 PM RESEARCH MANAGER): Not quite at goal at this time still having issues with focusing but feel there might be some underlying depression Will refer to psychiatry Would recommend starting wellbutrin Assessment & Plan (07/15/2022 8:01 AM RESEARCH MANAGER): Stable Continue current regimen Assessment & Plan (06/04/2022 4:28 PM RESEARCH MANAGER): significant improvement with current dose. Assessment & Plan (02/28/2022 4:36 PM CDT): Some improvement with increase in dose but states that by afternoon it wears off. Will increase to 10 mg twice a day, if it start having side effects will decrease back and try an extended release Assessment & Plan (01/17/2022 4:04 PM CDT): Some improvement with increase in dose. Will increase it once more to 10 mg in am and 5 mg pm. Pt to let me know if she has any side effects or no improvement. If its starts affecting sleep or develops side effects will decrease back to 5 mg bid Assessment & Plan (12/18/2021 4:17 PM CDT): Had some significant improvement with adderall 5 mg bid. Will continue for another month, may need to increase further. Hx of hysterectomy with hx o f benign disease or negative Pap smears 12/18/2021 Assessment & Plan (09/11/2022 4:01 PM RESEARCH MANAGER): Referral to obgyn Current smoker 12/18/2021 Assessment & Plan (04/15/2023 4:47 PM CDT): Significant improvement Has cut down to a few day Continue wellbutrin 150 mg bid at least until 3 months after quitting Resolved Problems Problem Noted Date Diagnosed Date Resolved Date Attention deficit 11/16/2021 12/18/2021 Fever blister 11/16/2021 12/17/2022 Paresthesia of upper extremity 06/18/2018 10/20/2019 Assessment & Plan (06/18/2018 4:05 PM RESEARCH MANAGER): Paresthesia secondary to possible cervical strain verses the cervical disc disease. We discussed completing an MRI to look further into possible cervical disc disease however encouraging her to move forward with treating her strain appropriately, as mentioned above and following up in 2 weeks for further management Moderate episode of recurren t major depressive disorder 09/27/2017 10/20/2019 Generalized anxiety disorder 09/27/2017 10/20/2019 Chronic bilateral low back p ain without sciatica 09/27/2017 10/20/2019 BMI 31.0-31.9,adult 02/28/2017 06/18/20 18 Assessment & Plan (02/28/2017 1:31 PM CDT): Recommended patient to continue to increase heart healthy diet with adequate fruits, vegetables, and plenty of water along with mild-moderate daily exercise as tolerated. Cervicalgia 02/28/2017 10/20/2019 Assessment & Plan (06/18/2018 4:05 PM RESEARCH MANAGER): Acute trapezius strain verses cervical disc disease based upon presentation. I am encouraging patient to appropriately treat the neck strain with physical therapy, heat, corticosteroids, and muscle relaxer and follow up in 2 weeks without improvement, considering negative C-spine x-ray completed within the year and chronicity of pain, we will consider MRI at that time. Assessment & Plan (02/28/2017 1:45 PM CDT): We discussed doing an MRI since she already had an x-ray completed that she reports to be negative, but I advised that we try some cervical traction 1st to see if that improves any of her pain and certainly but does not we will before with an MRI of neck Medrol Dosepak was also prescribed to take as advised along with cyclobenzaprine 1 tab t.i.d. p.r.n. for acute relief of trapezius muscle strain and neck pain Heat application as well as stretching exercise were also provided office today. Will follow patient regarding this condition 2 weeks and certainly sooner as needed Patient encounter status 04/01/2016 Overview (10/11/2016): Adult general medical exam Immunizations Immunization Administration Dates Next Due Influenza, Unspecified 04/19/2024(Deferr ed: Patient Refused),10/03/2023(Deferred: Patient Refused),04/15/2023(Deferred: Patient Refused),11/16/2021(Deferred: Patient Refused),05/21/2021(Deferred: Patient Refused),04/06/2021(Deferred: Patient Refused),02/05/2020(Deferred: Patient Refused),10/20/2019(Deferred: Patient Refused),04/06/2019(Deferred: Patient Refused) TD Preservative Free 03/29/2016 Tdap 01/17/2022 Social History Tobacco Use Types Packs/Day Years Used Date Smoking Tobacco: Every Day Cigarettes 0.3 28 Smokeless Tobacco: Never Tobacco Cessation:Counseling Given: Yes Comments:Smoking History Packs/day: 0.5 Packs Alcohol Use Standard Drinks/Week Comments Yes 0 (1 standard drink = 0.6 oz pur e alcohol) AUDIT-C Answer Date Recorded Q1: How often do you have a drink containing alcohol? Never 08/05/2024 Q2: How many drinks containi ng alcohol do you have on a typical day when you are drinking? Patient does not drink Q3: How often do you have si x or more drinks on one occasion? Never 08/05/2024 PHQ-2 Answer Date Recorded PHQ-2 Total Score (If total score is 3 or more points, staff should administer the PHQ-9) 0 08/05/2024 Comments No Sex and Gender Information Value Date Recorded Sex Assigned at Not on file Legal Sex Female 3:35 AM RESEARCH MANAGER Gender Identity Female 08/24/2023 12:00 PM RESEARCH MANAGER Sexual Orientation Straight 08/24/2023 12 :00 PM RESEARCH MANAGER Last Filed Vital Signs Vital Sign Reading Time Taken Comments Blood Pressure 110/70 08/16/2024 4:05 PM RESEARCH MANAGER Pulse 78 08/05/2024 8:53 AM RESEARCH MANAGER Temperature 36.2 C (97.2 F) 04/15/2023 4:38 PM CDT Respiratory Rate 16 08/05/2024 8:53 AM RESEARCH MANAGER Oxygen Saturation 98% 08/05/2024 8:53 AM RESEARCH MANAGER Inhaled Oxygen Concentration - - Weight 92.5 kg (204 lb) 08/16/2024 4:05 PM RESEARCH MANAGER Height 170.2 cm (5' 7 ) 08/16/2024 4:05 PM RESEARCH MANAGER Body Mass Index 31.95 08/16/2024 4:05 PM RESEARCH MANAGER Plan of Treatment Not on file Procedures Procedure Name Priority Date/Time Associated Diagnosis Comments EGFR Routine 07/30/2024 7:22 AM RESEARCH MANAGER Attention deficit hyperactivity disorder (ADHD), predominantly inattentive type DIFFERENTIAL AUTO Routine 07/30/2024 7:2 2 AM RESEARCH MANAGER Primary insomnia LIPID PANEL Routine 07/30/2024 7:22 AM RESEARCH MANAGER Lipid screening HEMOGLOBIN A1C Routine 07/30/2024 7:22 AM RESEARCH MANAGER Class 1 obesity due to excess calories without serious comorbidity with body mass index (BMI) of 32.0 to 32.9 in adult COMPREHENSIVE METABOLIC PANEL Routine 07/30/2024 7:22 AM RESEARCH MANAGER Attention deficit hyperactivity disorder (ADHD), predominantly inattentive type CBC WITH AUTO DIFFERENTIAL Routine 07/30/2024 7:22 AM RESEARCH MANAGER Primary insomnia DHEA-SULFATE Routine 07/30/2024 7:22 AM RESEARCH MANAGER Perimenopausal symptom FOLLICLE STIMULATING HORMONE Routine 07/30/2024 7:22 AM RESEARCH MANAGER Perimenopausal symptom GLUCOSE, FASTING Routine 07/30/2024 7:22 AM RESEARCH MANAGER Perimenopausal symptom LUTEINIZING HORMONE (LH) Routine 07/30/2024 7:22 AM RESEARCH MANAGER Perimenopausal symptom INSULIN, TOTAL Routine 07/30/2024 7:22 AM RESEARCH MANAGER Perimenopausal symptom PROLACTIN Routine 07/30/2024 7:22 AM RESEARCH MANAGER Perimenopausal symptom TESTOSTERONE, TOTAL AND FREE, SERUM Routine 07/30/2024 7:22 AM RESEARCH MANAGER Perimenopausal symptom THYROID FUNCTION CASCADE Routine 07/30/2024 7:22 AM RESEARCH MANAGER Perimenopausal symptom HEPATITIS B CORE ANTIBODY, TOTAL Routine 07/30/2024 7:22 AM RESEARCH MANAGER Need for hepatitis B screening test HEPATITIS B SURFACE ANTIBODY (IMMUNE STATUS) Routine 07/30/2024 7:22 AM RESEARCH MANAGER Need for hepatitis B screening test HEPATITIS B SURFACE ANTIGEN Routine 07/30/2024 7:22 AM RESEARCH MANAGER Need for hepatitis B screening test HEPATITIS C ANTIBODY Routine 07/30/2024 7:22 AM RESEARCH MANAGER Need for hepatitis B screening test PAP AND HPV, REFLEX TO HPV GENOTYPES Routine 02/07/2023 9:32 AM CDT Well woman exam from Last 3 Months or Most Recently Relevant to Health Maintenance Results * eGFR (07/30/2024 7:22 AM RESEARCH MANAGER) eGFR 86 >=60 mL/min/1. 73 m2 Comment: Interpretive Data Reference Interval Normal >/= 90 mL/min/1.73m2 Mildly decreased* 60 - 89 mL/min/1.73m2 Mildly to moderately decreased 45 - 59 mL/min/1.73m2 Moderately to severely decreased 30 - 44 mL/min/1.73m2 Severely decreased 15 - 29 mL/min/1.73m2 Kidney Failure < 15 mL/min/1.73m2 *Relative to young adult level Estimated glomerular filtration rate is determined by the 2020 CKD-EPI equation recommended by the National Kid[employer] Foundation (A Unifying Approach to GFR Estimation: Recommendations of the NKF-ASK Task Force on Reassessing the Inclusion of Race in Diagnosing Kidney Disease, JASN 2020). The CKD-EPI equation should not be used for patients with unstable renal function and has not been validated in children and those over 70. Current interpretive data was last reviewed 2021. Blood 07/30/2024 7:22 AM RESEARCH MANAGER 07/30/2024 7:50 AM RESEARCH MANAGER us Roverto Leary MD LAB BLOOD ORDERABLES Final Resul t JIM ACEVEDO ([place] [place]) 1 [facility] Department [place] [address] * Differential, auto (07/30/2024 7:22 AM RESEARCH MANAGER) Neutrophil abs 4.1 1.5 - 6.5 K/cumm Imm gran abs 0.0 0.0 - 0.1 K/cumm [facility] ([place]) Lymphocyte abs 2.8 0.8 - 3.3 K/cumm [facility] ([place]) Monocyte abs 0.5 0.2 - 0.8 K/cumm [facility] ([place]) Eosinophil abs 0.2 0.0 - 0.5 K/cumm [facility] ([place]) Basophil abs 0.1 0.0 - 0.1 K/cumm [facility] ([place]) Neutrophil pct 53.5 % [facility] ([place]) Comment: Interpretive Data Percent cell count reference ranges are not reported, since discordance with absolute values may lead to misinterpretation of CBC data. Current Interpretive Data was last revised on 2017. Imm gran pct 0.1 % JIM ACEVEDO ([place]) Comment: Interpretive Data Percent cell count reference ranges are not reported, since discordance with absolute values may lead to misinterpretation of CBC data. Current Interpretive Data was last revised on 2017. Lymphocyte pct 36.6 % [facility]ICA [facility] ([place]) Comment: Interpretive Data Percent cell count reference ranges are not reported, since discordance with absolute values may lead to misinterpretation of CBC data. Current Interpretive Data was last revised on 2017. Monocyte pct 6.8 % JIM ACEVEDO ([place]) Comment: Interpretive Data Percent cell count reference ranges are not reported, since discordance with absolute values may lead to misinterpretation of CBC data. Current Interpretive Data was last revised on 2017. Eosinophil pct 2.3 % YUENE Jack ACEVEDO ([place]) Comment: Interpretive Data Percent cell count reference ranges are not reported, since discordance with absolute values may lead to misinterpretation of CBC data. Current Interpretive Data was last revised on 2017. Basophil pct 0.7 % JIM ACEVEDO ([place]) Comment: Interpretive Data Percent cell count reference ranges are not reported, since discordance with absolute values may lead to misinterpretation of CBC data. Current Interpretive Data was last revised on 2017. Blood 07/30/2024 7:22 AM RESEARCH MANAGER 07/30/2024 7:50 AM RESEARCH MANAGER us Roverto Leary MD LAB BLOOD ORDERABLES Final Resul t JIM ACEVEDO ([place]) 1 [facility] Department of Laboratories [place], [place] [id number] * Thyroid Function Starr (07/30/2024 7:22 AM RESEARCH MANAGER) TSH 1.81 0.30 - 4.20 mcIUnit/mL Blood 07/30/2024 7:22 AM RESEARCH MANAGER 07/30/2024 7:50 AM RESEARCH MANAGER us Margaux Oseguera NP LAB BLOOD ORDERABLES Final Resul t [facility] ([place]) 1 [facility] Department [place] [address] * (ABNORMAL) CBC with auto differential (07/30/2024 7:22 AM RESEARCH MANAGER) Pathologist [facility] WBC 7.7 3.8 - 9.9 K/cumm Hgb 15.0 11.9 - 15.5 g/dL [facility] ([place]) Hct 43.7 35.6 - 45.5 % [facility] ([place]) Plt 280 150 - 400 K/cumm [facility] ([place]) MPV 8.8(L) 9.1 - 12.3 fL [facility] ([place]) RBC 4.78 3.90 - 5.20 M/cumm [facility] ([place]) MCV 91.4 81.3 - 96.4 fL [facility] ([place]) MCH 31.4 27.1 - 33.3 pg [facility] ([place]) MCHC 34.3 32.3 - 35.7 g/dL [facility] ([place]) RDW CV 11.9 11.1 - 14.9 % [facility] ([place]) RDW SD 40.1 35.7 - 48.1 fL [facility] ([place]) NRBC abs 0.00 0.00 - 0.01 K/cumm [facility] ([place]) Blood 07/30/2024 7:22 AM RESEARCH MANAGER 07/30/2024 7:50 AM RESEARCH MANAGER us Roverto Leary MD LAB BLOOD ORDERABLES Final Resul t JIM [facility] ([place]) 1 [facility] Department [place] [address] * Hepatitis C antibody Blood (07/30/2024 7:22 AM RESEARCH MANAGER) Hep C Ab Nonreactive Nonreactive Comment: Interpretive Data Nonreactive: Antibodies to HCV not detected. Does NOT exclude the possibility of recent exposure to HCV. Equivocal: Equivocal for HCV antibodies. Supplemental molecular testing will be automatically performed to determine infection status in accordance with current CDC screening recommendations. Reactive: Positive for HCV antibodies. This may represent current or past HCV infection. Supplemental molecular testing will be automatically performed to determine current infection status in accordance with current CDC screening recommendations. Interpretive data was last revised on 2019. Testing performed by: [facility], [address] [place] [address]., [id number] Blood 07/30/2024 7:22 AM RESEARCH MANAGER 07/30/2024 11:17 AM RESEARCH MANAGER Roverto Leary MD LAB MICROBIOLOGY - GENERAL ORDER ZOE Final Result JIM ACEVEDO ([place]) [address] [place] [address] [place] [address] * Hepatitis B core antibody, total Blood (07/30/2024 7:22 AM RESEARCH MANAGER) Hep B core IgG/IgM Nonreactive Nonreactive Comment:Testing performed by : [facility], [address] [place] [address], [place]., [address] Blood 07/30/2024 7:22 AM RESEARCH MANAGER 07/30/2024 10:02 AM RESEARCH MANAGER Roverto Leary MD LAB MICROBIOLOGY - GENERAL ORDER ZOE Final Result JIM ACEVEDO ([place]) 1 [facility] [place] [address] * Prolactin (07/30/2024 7:22 AM RESEARCH MANAGER) Prolactin 19.4 4.8 - 23.3 ng/mL Comment:Testing performed by : [facility] [facility], [address] [place] [address]., [id number] Blood 07/30/2024 7:22 AM RESEARCH MANAGER 07/30/2024 11:17 AM RESEARCH MANAGER Margaux Oseguera NP LAB BLOOD ORDERABLES Final Resul t Performing Organization Address City/[facility]/ZIP Co de Phone Number [facility] (BRANDO) 1 [facility] [place] [address] * Insulin, total (07/30/2024 7:22 AM RESEARCH MANAGER) Pathologist [facility] Insulin 7.7 2.6 - 25.0 mcIUnit/mL Comment:Testing performed by : [facility], [address] [place] [address]., [id number] Blood 07/30/2024 7:22 AM RESEARCH MANAGER 07/30/2024 10:02 AM RESEARCH MANAGER Margaux Oseguera NP LAB BLOOD ORDERABLES Final Resul t Performing Organization Address [facility] Co de Phone Number [facility] ([place]BY GAP) 1 [facility] [place] [address] * DHEA-sulfate (07/30/2024 7:22 AM RESEARCH MANAGER) Pathologist [facility] DHEA-S 85.6 60.9 - 337.0 mcg/dL Comment:Testing performed by : [facility], [address] [place] [address]., [id number] Blood 07/30/2024 7:22 AM RESEARCH MANAGER 07/30/2024 10:02 AM RESEARCH MANAGER Margaux Oseguera NP LAB BLOOD ORDERABLES Final Resul t Performing Organization Address City/[facility] Co de Phone Number [facility] (BRANDO) 1 [facility] [place] [address] * Hepatitis B surface antibody (immune status) Blood (07/30/2024 7:22 AM RESEARCH MANAGER) Pathologist [facility] HBsAb (immune status) Nonreactive Comment: Interpretive Data Nonreactive: This result is consistent with a lack of immunity to Hepatitis B Virus when used in the setting of routine screening. Equivocal: The immune status of the individual should be further assessed, if appropriate, after consideration of clinical status, risk factors, and additional diagnostic information. Reactive: This result is consistent with immunity to Hepatitis B Virus when used in the setting of routine screening. Current interpretive data was last revised on 19. Testing performed by: [facility], [address] [place] [address]., [id number] Blood 07/30/2024 7:22 AM RESEARCH MANAGER 07/30/2024 11:17 AM RESEARCH MANAGER Roverto Leary MD LAB MICROBIOLOGY - GENERAL ORDER ZOE Final Result Performing Organization Address [facility] Co de Phone Number [facility] ([place]) 1 [place] [address] * Hepatitis B Surface Antigen Blood (07/30/2024 7:22 AM RESEARCH MANAGER) Pathologist [facility] HepBsAg Nonreactive Nonreactive Comment:Testing performed by : [facility], [address] [place] [address]., [id number] Blood 07/30/2024 7:22 AM RESEARCH MANAGER 07/30/2024 11:17 AM RESEARCH MANAGER Roverto Leary MD LAB MICROBIOLOGY - GENERAL ORDER ZOE Final Result Performing Organization Address [facility] de Phone Number [facility] (BRANDO) [address] [place] [id number] * Testosterone, Total and Free, Serum (07/30/2024 7:22 AM RESEARCH MANAGER) Pathologist [facility] Testosterone 24 8 - 60 ng/dL [place] ref Lab Comment: ADDITIONAL INFORMATION Testing performed by Liquid Chromatography-Tandem Mass Spectrometry (LC-MS/MS). This test was developed and its performance characteristics determined by [facility] in a manner consistent with CLIA requirements. This test has not been cleared or approved by the U.S. Food and Drug Administration. Test Performed by: [facility] - [address] [address] Director Industrial Nursing: Samson Elizalde Ph.D.; CLIA# [id number] Testosterone, free 0.36 <0.13 - 0.98 ng/dL [facility] ([place]) Comment: ADDITIONAL INFORMATION This test was developed and its performance characteristics determined by [facility] in a manner consistent with CLIA requirements. This test has not been cleared or approved by the U.S. Food and Drug Administration. Blood 07/30/2024 7:22 AM RESEARCH MANAGER 07/30/2024 7:50 AM RESEARCH MANAGER Margaux Oseguera NP LAB BLOOD ORDERABLES Final Resul t Performing Organization Address [facility] de Phone Number [facility]IM [facility] ([place] GAP) [address] [place] [address] [place] [address] [facility] * Hemoglobin A1c (07/30/2024 7:22 AM RESEARCH MANAGER) Hgb A1C 5.1 4.0 - 5.6 % Estimated Average Glucose 100 mg/dL [facility] ([place] GAP) Comment: The ADA recommends reporting an estimated Average Glucose (eAG) with all Hemoglobin A1c results using the equation derived from a study of 507 normal and diabetic adults. Minority populations were underrepresented and children were not included. (Diabetes Care 31:3591-2407, 2008). The eAG is not equivalent to a fasting glucose. Blood 07/30/2024 7:22 AM RESEARCH MANAGER 07/30/2024 7:50 AM RESEARCH MANAGER us Roverto Leary MD LAB BLOOD ORDERABLES Final Resul t Performing Organization Address City/[facility] Co de Phone Number [facility]IM [facility] ([place] GAP) 1 [facility] [place] [address] * LH (07/30/2024 7:22 AM RESEARCH MANAGER) LH 52.0 IUnits/L Comment: Interpretive Data Males: Adults: 1.7 - 8.6 IUnits/L Females: Follicular: 2.4 - 12.6 IUnits/L Ovulation: 14.0 - 95.6 IUnits/L Luteal: 1.0 - 11.4 IUnits/L Postmenopausal: 7.7 - 58.5 IUnits/L Current interpretive data was last revised on 2018. Testing performed by: [facility], [address] [place] [address], [id number] Blood 07/30/2024 7:22 AM RESEARCH MANAGER 07/30/2024 10:02 AM RESEARCH MANAGER Margaux Oseguera NP LAB BLOOD ORDERABLES Final Resul t Performing Organization Address [facility] Co de Phone Number [facility] ([place]) [address] [place] [address] [place] [address] * Follicle stimulating hormone (07/30/2024 7:22 AM RESEARCH MANAGER) FSH 30.9 IUnits/L Comment: Interpretive Data Male: Adults: 1.5 - 12.4 IUnits/L Female: Follicular: 3.5 - 12.5 IUnits/L Ovulation: 4.7 - 21.5 IUnits/L Luteal: 1.7 - 7.7 IUnits/L Postmenopausal: 25.8 - 134.8 IUnits/L Current interpretive data was last revised 2015. Testing performed by: [facility], [address] [place] [address]., [id number] Blood 07/30/2024 7:22 AM RESEARCH MANAGER 07/30/2024 10:02 AM RESEARCH MANAGER Margaux Oseguera NP LAB BLOOD ORDERABLES Final Resul t Performing Organization Address [facility] Co de Phone Number [facility] ([place]) [address] [place] [address] [place] [address] * (ABNORMAL) Glucose, fasting (07/30/2024 7:22 AM RESEARCH MANAGER) Glucose, fasting 112(H) 70 - 99 mg/dL Blood 07/30/2024 7:22 AM RESEARCH MANAGER 07/30/2024 7:50 AM RESEARCH MANAGER us Margaux Oseguera NP LAB BLOOD ORDERABLES Final Resul t [facility] ([place]) 1 [facility] Department [place] [address] * Lipid panel (07/30/2024 7:22 AM RESEARCH MANAGER) Cholesterol 124 30 - 199 mg/dL Comment: Interpretive Data Ages < or = 19 years Acceptable: <170 mg/dL Borderline high: 170-199 mg/dL High: >or= 200 mg/dL Ages > or = 20 years Desirable: <200 mg/dL Borderline high: 200-239 mg/dL High: >or= 240 mg/dL Literature References: 1. Expert Panel on Integrated Guidelines for Cardiovascular Health and Risk Reduction in Children and Adolescents. Pediatrics 2011;128:S213 2. NCEP Expert Panel. Circulation 2004;110:227 Current Interpretive Data was last revised on 2018. Triglycerides 40 <=149 mg/dL [facility] (BRANDO) Comment: Interpretive Data Ages < or = 9 years Acceptable: <75 mg/dL Borderline high: 75-99 mg/dL High: >or= 100 mg/dL Ages 10 to 20 years Acceptable: <90 mg/dL Borderline high: 90-129 mg/dL High: >or= 130 mg/dL Ages > or = 20 years Desirable: <150 mg/dL Borderline high: 150-199 mg/dL High: 200-499 mg/dL Very high: >or= 499 mg/dL Literature References: 1. Expert Panel on Integrated Guidelines for Cardiovascular Health and Risk Reduction in Children and Adolescents. Pediatrics 2011;128:S213 2. NCEP Expert Panel. Circulation 2004;110:227 Current Interpretive Data was last revised on 2018. HDL 64 >=40 mg/dL [facility] (BRANDO) Comment: Interpretive Data Ages < or = 19 years Acceptable: >45 mg/dL Borderline low: 40-45 mg/dL Low: <40 mg/dL Ages > or = 20 years Desirable: >or= 60 mg/dL Low: <40 mg/dL Literature References: 1. Expert Panel on Integrated Guidelines for Cardiovascular Health and Risk Reduction in Children and Adolescents. Pediatrics 2011;128:S213 2. NCEP Expert Panel. Circulation 2004;110:227 Current Interpretive Data was last revised on 2018. LDL, calculated 50 <=129 mg/dL [facility] (BRANDO) Comment: Interpretive Data Ages < or = 19 years Acceptable: <110 mg/dL Borderline high: 110-129 mg/dL High: >or= 130 mg/dL Ages > or = 20 years Optimal: <100 mg/dL Near optimal: 100-129 mg/dL Borderline high: 130-159 mg/dL High: >160 mg/dL Calculated using the Frantz LDL-C estimating equation. This equation was implemented on 2024. Prior to this date LDL-C was estimated using the Friedewald equation. Literature References: 1. Expert Panel on Integrated Guidelines for Cardiovascular Health and Risk Reduction in Children and Adolescents. Pediatrics 2011;128:S213 2. NCEP Expert Panel. Circulation 2004;110:227 3. Frantz Herndon et al. ISHAN Cardiol. 2020 November 04;5(5):540-548. doi: 10.1001/jamacardio.2020.0013 Current Interpretive Data was last revised on 2024. Non-HDL Cholesterol 60 mg/dL [facility] (BRANDO) Comment: Interpretive Data Ages < or = 19 years Acceptable: <120 mg/dL Borderline high: 120-144 mg/dL High: >145 mg/dL Ages > or = 20 years When triglycerides are >200 mg/dL, Non-HDL cholesterol is a secondary target of therapy with treatment goals that are 30 mg/dL greater than the LDL cholesterol target. Literature References: 1. Expert Panel on Integrated Guidelines for Cardiovascular Health and Risk Reduction in Children and Adolescents. Pediatrics 2011;128:S213 2. NCEP Expert Panel. Circulation 2004;110:227 Current Interpretive Data was last revised on 2018. Chol/HDL ratio 2 [facility] (BRANDO) Blood 07/30/2024 7:22 AM RESEARCH MANAGER 07/30/2024 7:50 AM RESEARCH MANAGER us Roverto Leary MD LAB BLOOD ORDERABLES Final Resul t [facility] (BRANDO) 1 [facility] Department [place] [address] * Comprehensive metabolic panel (07/30/2024 7:22 AM RESEARCH MANAGER) Sodium 137 135 - 145 mmol/L Potassium, pl 4.1 3.3 - 4.9 mmol/L [facility] (BRANDO) Chloride 102 97 - 110 mmol/L [facility] (BRANDO) CO2 26 22 - 32 mmol/L [facility] (BRANDO) Anion gap 10 2 - 15 mmol/L [facility] (BRANDO) BUN 10 6 - 25 mg/dL [facility] (BRANDO) Creatinine 0.86 0.60 - 1.10 mg/dL [facility] (BRANDO) Glucose 112 70 - 199 mg/dL [facility] (BRANDO) Comment: Interpretive Data Fasting glucose >/= 126 mg/dl is diagnostic for diabetes. Fasting is defined as no caloric intake for at least 8 hours. Fasting glucose between 100 mg/dl to 125 mg/dl is diagnostic of prediabetes. In a patient with classic symptoms of hyperglycemia or hyperglycemic crisis, a random glucose >/= 200 mg/dl is diagnostic for diabetes. In the absence of unequivocal hyperglycemia, results should be confirmed by repeat testing. The classification and Diagnosis of Diabetes Diabetes Care 202; 46: S19-S40. Current interpretive data was last revised 2022. Calcium 9.3 8.5 - 10.3 mg/dL [facility] (BRANDO) Bilirubin, total 1.0 0.1 - 1.2 mg/dL [facility] ([place]ANDO) Protein, pl 6.7 6.5 - 8.5 g/dL [facility] (BRANDO) Albumin 4.5 3.5 - 5.0 g/dL [facility] (BRANDO) Alk phos 77 40 - 130 Units/L [facility] (BRANDO) ALT 15 7 - 45 Units/L [facility] (BRANDO) AST 19 10 - 45 Units/L [facility] (BRANDO) Blood 07/30/2024 7:22 AM RESEARCH MANAGER 07/30/2024 7:50 AM RESEARCH MANAGER us Roverto Leary MD LAB BLOOD ORDERABLES Final Resul t [facility] (BRANDO) 1 [facility] Department [place] [address] * Pap and HPV, reflex to HPV Genotypes (02/07/2023 9:32 AM CDT) CLINICAL INFORMATION: [facility] Comment:Hysterectomy LMP [facility] Comment:HYST Previous Pap [facility] Comment:NONE GIVEN Prev. Bx [facility] Comment:NONE GIVEN SOURCE: [facility] Comment:Vagina Pap, specimen adequacy [facility] Comment:SATISFACTORY FOR ELIDA LUATION HPV interp [facility] Comment: Cytology Results: Negative for intraepithelial lesion or malignancy. Group Underwriter Que [facility] Comment: BES, CT(ASCP) CT screening location: [place] [address] [place] [address] Comment [facility] Comment: EXPLANATORY NOTE: The Pap is a screening test for cervical cancer. It is not a diagnostic test and is subject to false negative and false positive results. It is most reliable when a satisfactory sample, regularly obtained, is submitted with relevant clinical findings and history, and when the Pap result is evaluated along with historic and current clinical information. Human papillomavirus DNA, High Risk E6/E7 Not Detected NOT DETECTED Yours Florally /Monet [facility]AT[facility] Comment: Not Detected High Risk HPV types (16,18,31,33,35,39,45,51,52, 56,58,59,66,68) were not detected. Other HPV types which cause anogenital lesions may be present. The significance of the other types of HPV in malignant processes has not been established. Methodology: Real Time PCR Thin prep 02/07/2023 9:32 AM CDT 02/08/2023 1:45 AM CDT us Margaux Oseguera NP LAB CYTOLOGY ORDERABLES Final [facility] [address] [facility] [place] [phone] [facility]/[place] [address] [facility] [place] [phone] from Last 3 Months or Most Recently Relevant to Health Maintenance Insurance CHOICE [employer]US [facility] HMO/PPO Address: [facility] [address] [place] [address] [place] [id number] [place] [address] Care Teams On Site Coordinator Relationship Specialty Start Date End Date Roverto Leary MD PCP - General Family Medicine 12/18/21
--- OUTSIDE RECORDS SUMMARY | 2024-10-10 16:37 | XMS_ITS | Clinical Summary ---
Author Organization [facility] Address [address] [place] [address] Care Team Providers Care Continuous Improvement Engineer Name Role Phone Unavailable Primary Care Provider Unavailabl e Source Comments [facility],non-owned Affiliates and Associated Physician Practices is amultiple site organization consisting of ambulatory clinics and hospital sitesin [place], [place], [place] and [place]. This disclosure is being madepursuant to the Care Everywhere program and may not contain all information available regarding this patient. Last updated 18.[facility] Allergies No known active allergies Social History Tobacco Use Types Packs/Day Years Used Date Smoking Tobacco: Former Alcohol Use Standard Drinks/Week Comments No 0 (1 standard drink = 0.6 oz pur e alcohol) Sex and Gender Information Value Date Recorded Sex Assigned at Not on file Gender Identity Not on file Sexual Orientation Not on file Plan of Treatment Health Maintenance Due Date Last Done Comments LIPID TESTING 1981 MAMMOGRAM 1981 PAP SMEAR 1981 HIV SCREENING 1996 HEPATITIS C SCREENING 11/26/1999 DTAP/TDAP/TD VACCINES (1 - Tdap) 2000 HEPATITIS B VACCINE (1 of 3 - 19+ 3-dose series) 2000 COVID-19 VACCINE ( - 2023-2 5 season) 2024 DEPRESSION SCREENING 07/07/2024 INFLUENZA VACCINE (Season Ended) 2025 ZOSTER VACCINE (1 of 2) 12/01/2031 HIB VACCINE Aged Out No longer eligi ble based on patient's age to complete this topic HPV VACCINE Aged Out No longer eligi ble based on patient's age to complete this topic MENINGOCOCCAL (Group B) VACC INE SHARED DECISION-MAKING Aged Out No longer eligibl e based on patient's age to complete this topic MENINGOCOCCAL GROUPS A/C/Y/W VACCINE Aged Out No longer eligible b ased on patient's age to complete this topic PNEUMOCOCCAL VACCINE Aged Out No long er eligible based on patient's age to complete this topic
--- OUTSIDE RECORDS SUMMARY | 2024-10-10 16:37 | XMS_ITS | Clinical Summary ---
Author Organization [facility] Building A Address [address] [place] [address] Care Team Providers Care Policy Specialist Name Role Phone Roverto Leary MD Primary Care Provider [phone] Allergies Active Allergy Reactions Criticality Noted Date [...] 08/18/2024 Assessment & Plan (08/18/2024 10:27 PM DICTAPHONE TYPIST): Discussed hormonal and non-hormonal treatment options for [...] 12/18/2021 Assessment & Plan (08/05/2024 9:12 AM DICTAPHONE TYPIST): Wt Readings from Last 3 Encounters: 08/05/24 [...] counseling. Assessment & Plan (08/18/2023 4:40 PM DICTAPHONE TYPIST): Wt Readings from Last 3 Encounters: 08/18/23 [...] counseling. Assessment & Plan (09/11/2022 3:53 PM DICTAPHONE TYPIST): Wt Readings from Last 3 Encounters: 09/11/22 96.2 kg (212 lb) 07/15/22 96.6 kg (213 lb) 06/04/22 96.2 kg (212 lb) BMI Readings from Last 3 Encounters: 09/11/22 33.20 kg/m 07/15/22 32.40 kg/m 06/04/22 32.24 kg/m Not at goal of bmi <30 Continue diet and exercise BMI Follow-up includes: nutrition counseling and exercise counseling. Assessment & Plan (07/15/2022 8:00 AM DICTAPHONE TYPIST): Wt Readings from Last 3 Encounters: 07/15/22 96.6 kg (213 lb) 06/04/22 96.2 kg (212 lb) 02/28/22 98 kg (216 lb 1.6 oz) BMI Readings from Last 3 Encounters: 07/15/22 32.40 kg/m 06/04/22 32.24 kg/m 02/28/22 32.87 kg/m Not at goal of bmi <30 Continue diet and exercise BMI Follow-up includes: nutrition counseling and exercise counseling. Assessment & Plan (06/04/2022 4:27 PM DICTAPHONE TYPIST): Wt Readings from Last 3 Encounters: 06/04/22 [...] 12/18/2021 Assessment & Plan (08/05/2024 9:09 AM DICTAPHONE TYPIST): restart adderral xr 10 mg every day, [...] qam Assessment & Plan (08/18/2023 4:39 PM DICTAPHONE TYPIST): Pt did not start wellbutrin yet Will [...] bid Assessment & Plan (09/11/2022 3:58 PM DICTAPHONE TYPIST): Not quite at goal at this time still having issues with focusing but feel there might be some underlying depression Will refer to psychiatry Would recommend starting wellbutrin Assessment & Plan (07/15/2022 8:01 AM DICTAPHONE TYPIST): Stable Continue current regimen Assessment & Plan (06/04/2022 4:28 PM DICTAPHONE TYPIST): significant improvement with current dose. Assessment & [...] 12/18/2021 Assessment & Plan (09/11/2022 4:01 PM DICTAPHONE TYPIST): Referral to obgyn Current smoker 12/18/2021 Assessment & Plan (04/15/2023 4:47 PM CDT): Significant improvement Has cut down to a few day Continue wellbutrin 150 mg bid at least until 3 months after quitting Resolved Problems Problem Noted Date Diagnosed Date Resolved Date Attention deficit 11/16/2021 12/18/2021 Fever blister 11/16/2021 12/17/2022 Paresthesia of upper extremity 06/18/2018 10/20/2019 Assessment & Plan (06/18/2018 4:05 PM DICTAPHONE TYPIST): Paresthesia secondary to possible cervical strain verses [...] 10/20/2019 Assessment & Plan (06/18/2018 4:05 PM DICTAPHONE TYPIST): Acute trapezius strain verses cervical disc disease [...] 04/01/2016 Overview (10/11/2016): Adult general medical exam Encounters Date Type Department Care Team Description 09/06/2024 Orders Only [facility] at [address] [phone] Roverto Leary MD 08/16/2024 4:00 PM DICTAPHONE TYPIST Office Visit [address] [place] [address] Margaux Oseguera NP Perimenopausal vasomotor symptoms (Primary Dx); Encounter for screening mammogram for breast cancer 08/05/2024 9:00 AM DICTAPHONE TYPIST Office Visit [facility] at [address] [phone] Roverto Leary MD Attention deficit hyperactivity disorder (ADHD), predominantly inattentive type (Primary Dx); Class 1 obesity due to excess calories without serious comorbidity with body mass index (BMI) of 32.0 to 32.9 in adult 07/30/2024 7:15 AM DICTAPHONE TYPIST Lab [address] [address] Need for hepatitis B screening test; Primary insomnia; Attention deficit hyperactivity disorder (ADHD), predominantly inattentive type; Class 1 obesity due to excess calories without serious comorbidity with body mass index (BMI) of 32.0 to 32.9 in adult; Lipid screening 07/30/2024 7:10 AM DICTAPHONE TYPIST Lab [facility] [address] [place] [address] Perimenopausal symptom 07/30/2024 Telephone [facility] at [address] [place] [phone] Roverto Leary MD Test Results 07/27/2024 Telephone [facility] [address] [facility] [address] [place] [phone] Margaux Oseguera NP Labs/Appointment 07/27/2024 Telephone [facility] [address] [facility] [address] [place] [phone] Margaux Oseguera, SALES PLANNER menopause symptoms 07/20/2024 Telephone [facility] [address] [place] [phone] Roverto Leary MD 07/15/2024 Telephone [facility] at [address] [place] [phone] Roverto Leary MD from Last 3 Months Immunizations Immunization Administration Dates Next Due Influenza, Unspecified 04/19/2024(Deferr ed: Patient Refused),10/03/2023(Deferred: Patient Refused),04/15/2023(Deferred: Patient Refused),11/16/2021(Deferred: Patient Refused),05/21/2021(Deferred: Patient Refused),04/06/2021(Deferred: Patient Refused),02/05/2020(Deferred: Patient Refused),10/20/2019(Deferred: Patient Refused),04/06/2019(Deferred: Patient Refused) TD Preservative Free 03/29/2016 Tdap 01/17/2022 Surgical History Surgery Date Site/Laterality Comments HYSTERECTOMY Family History Medical History Relation Name Comments Other Brother 2 Alive and well; Narcolepsy Father Narcolepsy; Other Mother Alive and well; Bladder Cancer Paternal Grandmother Other Sister x2 Alive and well; Relation Name Status Comments Brother 1 Alive Brother 2 Father Mother Alive Paternal Grandmother Sister x2 Alive Social History Tobacco Use Types Packs/Day Years [...] on file Legal Sex Female 3:35 AM DICTAPHONE TYPIST Gender Identity Female 08/24/2023 12:00 PM DICTAPHONE TYPIST Sexual Orientation Straight 08/24/2023 12 :00 PM DICTAPHONE TYPIST Obstetrics History Para Term AB IAB SAB Ectopic Multiple Livin g Live Births 1 1 1 2 2 Date Outcome GA Total Labor Labor/2nd/3rd Weight Sex Type Anes PTL Gina A1 A5 Name Clin Para Last Filed Vital Signs Vital Sign Reading Time Taken Comments Blood Pressure 110/70 08/16/2024 4:05 PM DICTAPHONE TYPIST Pulse 78 08/05/2024 8:53 AM DICTAPHONE TYPIST Temperature 36.2 C (97.2 F) 04/15/2023 4:38 PM CDT Respiratory Rate 16 08/05/2024 8:53 AM DICTAPHONE TYPIST Oxygen Saturation 98% 08/05/2024 8:53 AM DICTAPHONE TYPIST Inhaled Oxygen Concentration - - Weight 92.5 kg (204 lb) 08/16/2024 4:05 PM DICTAPHONE TYPIST Height 170.2 cm (5' 7 ) 08/16/2024 4:05 PM DICTAPHONE TYPIST Body Mass Index 31.95 08/16/2024 4:05 PM DICTAPHONE TYPIST Plan of Treatment Health Maintenance Due Date Last Done Comments Breast Cancer Screening-Mammogram 1981 Varicella Vaccines (1 of 2 - 13+ 2-dose series) 1994 Pneumococcal vaccine <65 (1 of 2 - PCV) 2000 Influenza Vaccine (#1) 2024 Regular Well Visit/Exam 18-64 04/19/2025 04/19/2024, 02/07/2023, 11/16/2021 Depression Screening 08/05/2025 08/05/2024, 04/19/2024, 12/22/2023, Additional history exists DTaP/Tdap/Td Vaccine (2 - Td or Tdap) 01/18/2032 01/17/2022, 03/29/2016 Cervical Cancer Screening Discontinued 02/07/2023 Hepatitis B Screening Completed 07/30/2024 Hepatitis C Screening Completed 07/30/2024 HPV Vaccines Aged Out No longer eligi ble based on patient's age to complete this topic Procedures Procedure Name Priority Date/Time Associated Diagnosis Comments EGFR Routine 07/30/2024 7:22 AM DICTAPHONE TYPIST Attention deficit hyperactivity disorder (ADHD), predominantly inattentive type DIFFERENTIAL AUTO Routine 07/30/2024 7:2 2 AM DICTAPHONE TYPIST Primary insomnia LIPID PANEL Routine 07/30/2024 7:22 AM DICTAPHONE TYPIST Lipid screening HEMOGLOBIN A1C Routine 07/30/2024 7:22 AM DICTAPHONE TYPIST Class 1 obesity due to excess calories without serious comorbidity with body mass index (BMI) of 32.0 to 32.9 in adult COMPREHENSIVE METABOLIC PANEL Routine 07/30/2024 7:22 AM DICTAPHONE TYPIST Attention deficit hyperactivity disorder (ADHD), predominantly inattentive type CBC WITH AUTO DIFFERENTIAL Routine 07/30/2024 7:22 AM DICTAPHONE TYPIST Primary insomnia DHEA-SULFATE Routine 07/30/2024 7:22 AM DICTAPHONE TYPIST Perimenopausal symptom FOLLICLE STIMULATING HORMONE Routine 07/30/2024 7:22 AM DICTAPHONE TYPIST Perimenopausal symptom GLUCOSE, FASTING Routine 07/30/2024 7:22 AM DICTAPHONE TYPIST Perimenopausal symptom LUTEINIZING HORMONE (LH) Routine 07/30/2024 7:22 AM DICTAPHONE TYPIST Perimenopausal symptom INSULIN, TOTAL Routine 07/30/2024 7:22 AM DICTAPHONE TYPIST Perimenopausal symptom PROLACTIN Routine 07/30/2024 7:22 AM DICTAPHONE TYPIST Perimenopausal symptom TESTOSTERONE, TOTAL AND FREE, SERUM Routine 07/30/2024 7:22 AM DICTAPHONE TYPIST Perimenopausal symptom THYROID FUNCTION CASCADE Routine 07/30/2024 7:22 AM DICTAPHONE TYPIST Perimenopausal symptom HEPATITIS B CORE ANTIBODY, TOTAL Routine 07/30/2024 7:22 AM DICTAPHONE TYPIST Need for hepatitis B screening test HEPATITIS B SURFACE ANTIBODY (IMMUNE STATUS) Routine 07/30/2024 7:22 AM DICTAPHONE TYPIST Need for hepatitis B screening test HEPATITIS B SURFACE ANTIGEN Routine 07/30/2024 7:22 AM DICTAPHONE TYPIST Need for hepatitis B screening test HEPATITIS C ANTIBODY Routine 07/30/2024 7:22 AM DICTAPHONE TYPIST Need for hepatitis B screening test PAP AND HPV, REFLEX TO HPV GENOTYPES Routine 02/07/2023 9:32 AM CDT Well woman exam from Last 3 Months or Most Recently Relevant to Health Maintenance Results * eGFR (07/30/2024 7:22 AM DICTAPHONE TYPIST) eGFR 86 >=60 mL/min/1. 73 m2 Comment: [...] last reviewed 2021. Blood 07/30/2024 7:22 AM DICTAPHONE TYPIST 07/30/2024 7:50 AM DICTAPHONE TYPIST us Roverto Leary MD LAB BLOOD ORDERABLES Final Resul t [facility] ([place]) [address] [facility] [place] [address] * Differential, auto (07/30/2024 7:22 AM DICTAPHONE TYPIST) Neutrophil abs 4.1 1.5 - 6.5 K/cumm [...] on 2017. Imm gran pct 0.1 % [facility] ([place]) Comment: Interpretive Data Percent cell count reference ranges are not reported, since discordance with absolute values may lead to misinterpretation of CBC data. Current Interpretive Data was last revised on 2017. Lymphocyte pct 36.6 % [facility] ([place]) Comment: Interpretive Data Percent cell count reference ranges are not reported, since discordance with absolute values may lead to misinterpretation of CBC data. Current Interpretive Data was last revised on 2017. Monocyte pct 6.8 % [facility] ([place]) Comment: Interpretive Data Percent cell count reference ranges are not reported, since discordance with absolute values may lead to misinterpretation of CBC data. Current Interpretive Data was last revised on 2017. Eosinophil pct 2.3 % [facility] ([place]) Comment: Interpretive Data Percent cell count reference ranges are not reported, since discordance with absolute values may lead to misinterpretation of CBC data. Current Interpretive Data was last revised on 2017. Basophil pct 0.7 % [facility] ([place]) Comment: Interpretive Data Percent cell count reference ranges are not reported, since discordance with absolute values may lead to misinterpretation of CBC data. Current Interpretive Data was last revised on 2017. Blood 07/30/2024 7:22 AM DICTAPHONE TYPIST 07/30/2024 7:50 AM DICTAPHONE TYPIST us Roverto Leary MD LAB BLOOD ORDERABLES Final Resul t Performing Organization Address [facility] de Phone Number [facility] ([place]) [address] [facility] [place] [address] * Thyroid Function [place] (07/30/2024 7:22 AM DICTAPHONE TYPIST) Pathologist [facility] TSH 1.81 0.30 - 4.20 mcIUnit/mL Blood 07/30/2024 7:22 AM DICTAPHONE TYPIST 07/30/2024 7:50 AM DICTAPHONE TYPIST us Margaux Oseguera NP LAB BLOOD ORDERABLES Final Resul t Performing Organization Address [facility] de Phone Number [facility] ([place]) 1 [facility] [place] [address] * (ABNORMAL) CBC with auto differential (07/30/2024 7:22 AM DICTAPHONE TYPIST) WBC 7.7 3.8 - 9.9 K/cumm Hgb 15.0 11.9 - 15.5 g/dL [facility] ([place]) Hct 43.7 35.6 - 45.5 % [facility] ([place]) Plt 280 150 - 400 K/cumm [facility] ([place]) MPV 8.8(L) 9.1 - 12.3 fL [facility] ([place]) RBC 4.78 3.90 - 5.20 M/cumm [facility] ([place]) MCV 91.4 81.3 - 96.4 fL [facility] ([place]) MCH 31.4 27.1 - 33.3 pg [facility] ([place]) MCHC 34.3 32.3 - 35.7 g/dL [facility] ([place]) RDW CV 11.9 11.1 - 14.9 % [facility] ([place]) RDW SD 40.1 35.7 - 48.1 fL [facility] ([place]) NRBC abs 0.00 0.00 - 0.01 K/cumm [facility] ([place]) Blood 07/30/2024 7:22 AM DICTAPHONE TYPIST 07/30/2024 7:50 AM DICTAPHONE TYPIST us Roverto Leary MD LAB BLOOD ORDERABLES Final Resul t Performing Organization Address City/State/[facility] Co de Phone Number [facility] ([place]) [address] [facility] [place] [address] * Hepatitis C antibody Blood (07/30/2024 7:22 AM DICTAPHONE TYPIST) Hep C Ab Nonreactive Nonreactive Comment: Interpretive [...] last revised on 2019. Testing performed by: [facility], [address] [place] [address], [place]., [address] Blood 07/30/2024 7:22 AM DICTAPHONE TYPIST 07/30/2024 11:17 AM DICTAPHONE TYPIST us Roverto Leary MD LAB MICROBIOLOGY - GENERAL ORDER ZOE Final Result Performing Organization Address City/[facility] Co de Phone Number [facility] ([place]) 1 [facility] [place] [address] * Hepatitis B core antibody, total Blood (07/30/2024 7:22 AM DICTAPHONE TYPIST) Hep B core IgG/IgM Nonreactive Nonreactive Comment:Testing performed by : [facility], [address] [place] [address], [address] Blood 07/30/2024 7:22 AM DICTAPHONE TYPIST 07/30/2024 10:02 AM DICTAPHONE TYPIST Roverto Leary MD LAB MICROBIOLOGY - GENERAL ORDER ZOE Final Result Performing Organization Address [facility] Co de Phone Number [facility] [place]) [address] [place] [address] [place] [address] * Prolactin (07/30/2024 7:22 AM DICTAPHONE TYPIST) Prolactin 19.4 4.8 - 23.3 ng/mL Comment:Testing performed by : [facility], [address] [place] [address]., [address] Blood 07/30/2024 7:22 AM DICTAPHONE TYPIST 07/30/2024 11:17 AM DICTAPHONE TYPIST us Margaux Oseguera NP LAB BLOOD ORDERABLES Final Resul t Performing Organization Address City/[facility] Co de Phone Number [facility] ([place]) [address] [place] [address] [place] [address] * Insulin, total (07/30/2024 7:22 AM DICTAPHONE TYPIST) Pathologist [facility] Insulin 7.7 2.6 - 25.0 mcIUnit/mL Comment:Testing performed by : [facility], [address] [place] [address], [place]., [address] Blood 07/30/2024 7:22 AM DICTAPHONE TYPIST 07/30/2024 10:02 AM DICTAPHONE TYPIST us Margaux Oseguera NP LAB BLOOD ORDERABLES Final Resul t [facility] ([place]) [address] [facility] [place] [address] * DHEA-sulfate (07/30/2024 7:22 AM DICTAPHONE TYPIST) DHEA-S 85.6 60.9 - 337.0 mcg/dL Comment:Testing performed by : [facility], [address] [place] [address], [address] Blood 07/30/2024 7:22 AM DICTAPHONE TYPIST 07/30/2024 10:02 AM DICTAPHONE TYPIST us Margaux Oseguera NP LAB BLOOD ORDERABLES Final Resul t Performing Organization Address [facility] Co de Phone Number [facility] ([place]) 1 [facility] [place] [address] * Hepatitis B surface antibody (immune status) Blood (07/30/2024 7:22 AM DICTAPHONE TYPIST) HBsAb (immune status) Nonreactive Comment: Interpretive Data [...] last revised on 19. Testing performed by: [facility], [address] [place] [address]., [address] Blood 07/30/2024 7:22 AM DICTAPHONE TYPIST 07/30/2024 11:17 AM DICTAPHONE TYPIST Roverto Leary MD LAB MICROBIOLOGY - GENERAL ORDER ZOE Final Result [facility] ([place]) [address] [facility] [place] [address] * Hepatitis B Surface Antigen Blood (07/30/2024 7:22 AM DICTAPHONE TYPIST) HepBsAg Nonreactive Nonreactive Comment:Testing performed by : [facility], [address] [place] [address], [place]., [address] Blood 07/30/2024 7:22 AM DICTAPHONE TYPIST 07/30/2024 11:17 AM DICTAPHONE TYPIST Roverto Leary MD LAB MICROBIOLOGY - GENERAL ORDER ZOE Final Result [facility] ([place]) 1 [facility] Department [place] [address] * Testosterone, Total and Free, Serum (07/30/2024 7:22 AM DICTAPHONE TYPIST) Pathologist [facility] Testosterone 24 8 - 60 ng/dL [facility] Comment: ADDITIONAL INFORMATION Testing performed by Liquid Chromatography-Tandem Mass Spectrometry (LC-MS/MS). This test was developed and its performance characteristics determined by [facility] in a manner consistent with CLIA requirements. This test has not been cleared or approved by the U.S. Food and Drug Administration. Test Performed by: [facility] [address] [place] [address] Surveyor Mine: Samson Elizalde Ph.D.; CLIA# [id number] Testosterone, free 0.36 <0.13 - 0.98 ng/dL JIM [facility] ([place]) Comment: ADDITIONAL INFORMATION This test was developed and its performance characteristics determined by [facility] in a manner consistent with CLIA requirements. This test has not been cleared or approved by the U.S. Food and Drug Administration. Blood 07/30/2024 7:22 AM DICTAPHONE TYPIST 07/30/2024 7:50 AM DICTAPHONE TYPIST Margaux Oseguera NP LAB BLOOD ORDERABLES Final Resul t Performing Organization Address [facility] Co de Phone Number [facility] [place]) 1 [place] [address] [facility] * Hemoglobin A1c (07/30/2024 7:22 AM DICTAPHONE TYPIST) Hgb A1C 5.1 4.0 - 5.6 % Estimated Average Glucose 100 mg/dL [facility] ([place]) Comment: The ADA recommends reporting an estimated Average Glucose (eAG) with all Hemoglobin A1c results using the equation derived from a study of 507 normal and diabetic adults. Minority populations were underrepresented and children were not included. (Diabetes Care 31:5205-8189, 2008). The eAG is not equivalent to a fasting glucose. Blood 07/30/2024 7:22 AM DICTAPHONE TYPIST 07/30/2024 7:50 AM DICTAPHONE TYPIST Roverto Leary MD LAB BLOOD ORDERABLES Final Resul t Performing Organization Address [facility] Co de Phone Number [facility] ([place]) 1 [facility] [place] [address] * LH (07/30/2024 7:22 AM DICTAPHONE TYPIST) Pathologist [facility] LH 52.0 IUnits/L Comment: Interpretive Data Males: Adults: 1.7 - 8.6 IUnits/L Females: Follicular: 2.4 - 12.6 IUnits/L Ovulation: 14.0 - 95.6 IUnits/L Luteal: 1.0 - 11.4 IUnits/L Postmenopausal: 7.7 - 58.5 IUnits/L Current interpretive data was last revised on 2018. Testing performed by: [facility], [address] [facility], [place]., [address] Blood 07/30/2024 7:22 AM DICTAPHONE TYPIST 07/30/2024 10:02 AM DICTAPHONE TYPIST Margaux Oseguera NP LAB BLOOD ORDERABLES Final Resul t [facility] ([place]) [address] [facility] [place] [address] * Follicle stimulating hormone (07/30/2024 7:22 AM DICTAPHONE TYPIST) FSH 30.9 IUnits/L Comment: Interpretive Data Male: Adults: 1.5 - 12.4 IUnits/L Female: Follicular: 3.5 - 12.5 IUnits/L Ovulation: 4.7 - 21.5 IUnits/L Luteal: 1.7 - 7.7 IUnits/L Postmenopausal: 25.8 - 134.8 IUnits/L Current interpretive data was last revised 2015. Testing performed by: [facility], [address] [place] [address] Blood 07/30/2024 7:22 AM DICTAPHONE TYPIST 07/30/2024 10:02 AM DICTAPHONE TYPIST Margaux Oseguera NP LAB BLOOD ORDERABLES Final Resul t Performing Organization Address [facility] Co de Phone Number JIM [facility] ([place]) 1 [facility] [place] [address] * (ABNORMAL) Glucose, fasting (07/30/2024 7:22 AM DICTAPHONE TYPIST) Glucose, fasting 112(H) 70 - 99 mg/dL Blood 07/30/2024 7:22 AM DICTAPHONE TYPIST 07/30/2024 7:50 AM DICTAPHONE TYPIST Margaux Oseguera NP LAB BLOOD ORDERABLES Final Resul t Performing Organization Address City/[facility]/ZIP Co de Phone Number JIM [facility] ([place]) [address] [facility] [place] [address] * Lipid panel (07/30/2024 7:22 AM DICTAPHONE TYPIST) Cholesterol 124 30 - 199 mg/dL Comment: [...] on 2018. Triglycerides 40 <=149 mg/dL [facility] ([place]) Comment: Interpretive Data [...] revised on 2018. HDL 64 >=40 mg/dL JIM HOWELL) Comment: Interpretive Data Ages < or = [...] 2018. LDL, calculated 50 <=129 mg/dL JIM HOWELL) Comment: Interpretive Data Ages < or = 19 years Acceptable: <110 mg/dL Borderline high: 110-129 mg/dL High: >or= 130 mg/dL Ages > or = 20 years Optimal: <100 mg/dL Near optimal: 100-129 mg/dL Borderline high: 130-159 mg/dL High: >160 mg/dL Calculated using the Landry LDL-C estimating equation. This equation was implemented on 2024. Prior to this date LDL-C was estimated using the Friedewald equation. Literature References: 1. Expert Panel on Integrated Guidelines for Cardiovascular Health and Risk Reduction in Children and Adolescents. Pediatrics 2011;128:S213 2. NCEP Expert Panel. Circulation 2004;110:227 3. Frantz Herndon et al. ISHAN Cardiol. 2019November 04;5(5):540-548. doi: 10.1001/jamacardio.2020.0013 Current Interpretive Data was [...] MONICA ACEVEDO ([place]) Blood 07/30/2024 7:22 AM DICTAPHONE TYPIST 07/30/2024 7:50 AM DICTAPHONE TYPIST us Roverto Leary MD LAB BLOOD ORDERABLES Final Resul t [facility] ([place]) 1 [facility] [place] [address] * Comprehensive metabolic panel (07/30/2024 7:22 AM DICTAPHONE TYPIST) Sodium 137 135 - 145 mmol/L Potassium, pl 4.1 3.3 - 4.9 mmol/L [facility] ([place]) Chloride 102 97 - 110 [...] classification and Diagnosis of Diabetes Diabetes Care 2021; 46: S19-S40. Current interpretive data was last [...] [facility] ([place]) Blood 07/30/2024 7:22 AM DICTAPHONE TYPIST 07/30/2024 7:50 AM DICTAPHONE TYPIST us Roverto Leary MD LAB BLOOD ORDERABLES Final Resul t [facility] ([place]) 1 [facility] Department of Laboratories [place], [place] [id number] * Pap and HPV, reflex to HPV Genotypes (02/07/2023 9:32 AM CDT) CLINICAL INFORMATION: [facility] Comment:Hysterectomy LMP [facility] Comment:HYST Previous Pap [facility] Comment:NONE GIVEN Prev. Bx [facility] Comment:NONE GIVEN SOURCE: [facility] Comment:Vagina Pap, specimen adequacy [facility] Comment:SATISFACTORY FOR ELIDA LUATION HPV interp [facility] Comment: Cytology Results: Negative for intraepithelial lesion or malignancy. Computer Aided Design Operator [facility] Comment: BES, CT(ASCP) CT screening location: [place] [address] Administration [place] [address] Comment [facility] Comment: EXPLANATORY NOTE: The Pap is a [...] High Risk E6/E7 Not Detected NOT DETECTED Don studdex /Monet GATICA Comment: Not Detected High Risk HPV types (16,18,31,33,35,39,45,51,52, 56,58,59,66,68) were not detected. Other HPV types which cause anogenital lesions may be present. The significance of the other types of HPV in malignant processes has not been established. Methodology: Real Time PCR Thin prep 02/07/2023 9:32 AM CDT 02/08/2023 1:45 AM CDT Margaux Oseguera [employer] ORDERABLES Final Re sult [place] [id number] [address] [place] [id number] [facility] [address] [address] from Last 3 Months or Most Recently Relevant to Health Maintenance Insurance [facility] CHOICE PLUS [place] [id number] Care Teams Policy Specialist Relationship Specialty Start Date End Date Roverto Leary MD PCP - General Family Medicine 12/18/21
[2024-10-10 16:41] VITALS: BP 142/85; PULSE 91; RESP 20; TEMP 36.2; O2SAT 98
--- NOTE | 2024-10-10 16:58 | ED_ITS ---
HPI - Wound/Laceration General Chief Complaint: Wound/Laceration Stated Complaint: Finger Injury/Laceration Time Seen by Provider: 10/10/24 16:58 Source: patient, family, RN notes reviewed and old records reviewed Mode of arrival: ambulatory Limitations: no limitations History of Present Illness HPI narrative: 43 year old female presents to [facility] care with injury to her right middle distal finger and nail bed. Patient works at [employer] and dropped a 20 lb steel julio on her right distal middle finger with injury also to nail bed. Bleeding controlled at this time with swelling and ecchymosis noted. Patient reports tetanus was last received 2019. Onset (ago): minute(s) (within past 30 minutes prior to arrival) Location: other (right distal middle finger) Place: work Patient tetanus UTD: Yes Treatments prior to arrival: bandage Related Data Home Medications ?Medication ?Instructions ?Recorded ?Confirmed ?Last Taken ?Type dextroamphetamine-amphetamine 10 10/10/24 Unknown History mg tablet Allergies Allergy/AdvReac Type Severity Reaction Status Date / Time No Known Allergies Allergy Verified 10/11/24 13:37 Review of Systems Review of Systems: CONSTITUTIONAL: Denies fever, chills, or sweats. EYES: Denies visual changes, redness, or discharge. ENT: Denies rhinorrhea, congestion, sore throat, or otalgia. CARDIOVASCULAR: Denies chest pain, palpitations, or edema. RESPIRATORY: Denies cough or dyspnea. GASTROINTESTINAL: Denies abdominal pain, nausea, vomiting, or diarrhea. GENITOURINARY: Denies dysuria or hematuria. SKIN: Denies rash or itching. MUSCULOSKELETAL: Denies back pain,reports acute pain to right distal middle finger with swelling and pain and bruising noted with injury to nail bed,, or myalgia. NEUROLOGIC: Denies headache, numbness, or weakness. PSYCHIATRIC: Denies anxiety or depression. All systems reviewed & are unremarkable except as noted in HPI and below PMFSH Past Medical History Medical History (Updated 10/11/24 @ 21:33 by Sugar Ramirez NP) ADHD (attention deficit hyperactivity disorder) Surgical History Surgical History (Updated 10/11/24 @ 21:24 by Sugar Ramirez NP) History of shoulder surgery left History of hysterectomy has remaining left ovary Social History Social History (Updated 10/11/24 @ 21:24 by Sugar Ramirez NP) Smoking status: Current every day smoker Tobacco type: cigarettes Alcohol intake: current Substance use type: does not use Living arrangements: with family Gender identity (if verbalized by the patient): Female Comments At time of signature, agree with nursing past medical, surgical, social and family history. There is no relevant family history pertinent to the presenting complaint Exam Narrative: GENERAL: Well-appearing, well-nourished, and in some acute distress related to pain HEAD: Normocephalic, atraumatic. EYES: PERRLA and EOMI. ENT: Nares clear, no rhinorrhea or epistaxis. Mucous membranes moist. NECK: Supple. no lymphadenopathy CHEST: Clear to auscultation. No respiratory distress.SAO2 98% on room air HEART: Regular rate and rhythm. No murmur heard. Normal peripheral pulses. ABDOMEN: Soft, nontender, nondistended, normal active bowel sounds. EXTREMITIES: Normal range of motion. No edema.Exception noted to distal right middle finger with crushing injury with avulsion of upper nail bed, and subungual hematoma noted to nail, swelling ecchymosis noted to finger tip. with acute pain described as throbbing, finger tip pink and warm to touch, bleeding under control, reports no present tingling or numbness. SKIN: Warm, dry, no rash. NEURO: No focal deficits. Alert and oriented x3.. Course Course Emergency Course: Patient is aware of diagnosis, understands and agrees to treatment plan.? Anticipatory guidance given.? Patient agrees to follow-up as directed and is aware of reasons to seek care at the emergency department. Portions of this record may have been created with voice recognition software Level of Care: Express Care Visit Vital Signs Vital signs: Vital Signs Temperature 36.2 C L 10/10/24 16:41 Pulse Rate 91 10/10/24 16:41 Respiratory Rate 20 10/10/24 16:41 Blood Pressure 142/85 H 10/10/24 16:41 Pulse Oximetry 98 10/10/24 16:41 Temperature 36.2 C L 10/10/24 16:41 Pulse Rate 91 10/10/24 16:41 Respiratory Rate 20 10/10/24 16:41 Blood Pressure 142/85 H 10/10/24 16:41 Pulse Oximetry 98 10/10/24 16:41 Reviewed MDM - Wound/Laceration MDM Narrative Medical decision making narrative: 1750 using cautery pen 3 holes placed in middle of nail to release pressure and promote drainage of blood from under nail, finger then soaked in Betadine solution then rinsed with saline and patted dry with sterile gauze. 1800 dressing of Telfa, gauze wrap and metal finger splint applied to right middle finger and secured with COBAN. Differential Diagnosis Differential diagnosis: Likely laceration and other (crush injury to distal right middle finger, fracture of distal middle finger,tuft fracture comminuted, nail bed avulsion,) Medical Records Attestation: I reviewed the patient's medical records. Imaging Data Attestation: I personally reviewed and interpreted this imaging study as follows: My impression: comminuted tuft fracture right distal middle finger nail bed injury Radiologist's impression: Launch?[facility] [employer] [place] [id number] XRay Report Signed Patient: Estefania Gramajo : 1980 MR#: [id number] Age: 43 Acct:[id number] Loc: [facility] ADM Date: 10/10/24Attending Dr: Ordering Physician: Sugar Ramirez APRN Date of Service: 10/10/24 Procedure(s): XR finger 3rd RT min 2V Accession Number(s): [id number] cc: Melanie Pritchett RN; Sugar Ramirez APRN~ HISTORY: dropped a steel bar on finger COMPARISON: None TECHNIQUE: 2 views of the right third digit were performed. FINDINGS: Comminuted fracture of the tuft of the right third digit. Suspect nailbed injury. Joint spaces are preserved and alignment is maintained. Soft tissues are without radiopaque foreign body or significant calcification. Age-appropriate mineralization. IMPRESSION: Comminuted fracture of the tuft of the right third digit, as detailed above. Reviewed, dictated and finalized at location A. Please be advised this is a medical document. It is intended for [id number] communication. It is written in medical language and may contain unfamiliar abbreviations or verbiage. Medical documents are intended to carry relevant information, facts as evident, and the clinical opinion of the practitioner at the time of the encounter. This report may have been done utilizing a voice recognition system. Attempts have been made to correct errors. However, there may be uncorrected grammatical, spelling, and recognition errors present. The file time of this note does not necessarily represent the time of service. Dictated By: Geneva Sellers MD 10/10/24 1711 Signed By: <Electronically signed by Geneva Sellers MD in OV> Critical Care Time Critical Care Time Critical Care Time: No Discharge Plan Discharge Clinical Impression: Fracture of distal phalanx of right middle finger, Injury of nail bed of finger of right hand Patient Disposition: Home Condition: Stable Instructions: Antibiotic Form, Finger Fracture (ED), Nail Avulsion (ED) Additional Instructions: orthopedic splint as directed for comfort till seen by hand surgeon Tylenol for lesser pain Ibuprofen regularly for the next 2-3 days for the inflammation Use the medication as provided for severe pain--caution each tablet contains 325 mg of Tylenol--the maximum dose of Tylenol is 4000 mg in 24 hours. This medication may cause constipation consider starting a laxative at this time Follow-up with hand surgeon Dr Hartley call office [phone] for appointment in morning located at [facility] [address] Follow-up with PCP if further problems or concerns f your symptoms persist, change or worsen significantly before you can contact your personal physician then please, without delay, go to the emergency department for further evaluation. Follow-up with PCP in 7-10 days or sooner if needed Follow up with PCP soon in regards to your blood pressure which is elevated above threshold for referral. Blood pressure above 120/80 may indicate pre- hypertension.142/85 Ice to the area 20-30 minutes 4-6 times a day Elevate above heart Patient Language: Chinese Prescriptions: New hydrocodone-acetaminophen 10-325 mg tablet 1 tablet PO Q6H PRN (Reason: pain) Qty: 10 0RF amoxicillin-pot clavulanate 875-125 mg tablet 1 tablet PO Q12H Qty: 20 0RF Rx Instructions: take with food advise probiotic or Activa yogurt while taking this medication No Action dextroamphetamine-amphetamine 10 mg tablet Follow-up/Referrals: Melanie Pritchett RN [Primary Care Provider] - Stand Alone Forms: Work/School Release IP Time of Disposition: 18:08 Quality [place] Coma Scale Eyes: Open Verbal: Oriented and Alert Motor: Follows Commands Richard Coma Total Score: 15
[2024-10-10] MEDS: IBUPROFEN 400 MG TABLET 800 MG PO (17:41)
== END 2024-10-10 18:15 | disposition home or self-care (01) ==
PROVIDERS: Emergency Provider Registered Nurse
DX: S62.632A Displaced fracture of distal phalanx of right middle finger, initial encounter for closed fracture (principal); W20.8XXA Other cause of strike by thrown, projected or falling object, initial encounter; Y99.0 Civilian activity done for income or pay; F17.210 Nicotine dependence, cigarettes, uncomplicated
CPT/HCPCS: 11740; 29130; 73140; 99214; A9270; G0463